=== PATIENT | female | born 1960 | race Caucasian/White ===

== ENCOUNTER 2016-10-14 18:20 | Observation (INO) ==
[2016-10-14] MEDS ORDERED: Acetaminophen 325 MG TABLET PO PRN (20:49)
[2016-10-14] MEDS ORDERED: *HR* Promethazine 25 MG/ML VIAL IVP PRN (20:49)
[2016-10-14] MEDS ORDERED: Aspirin 81 MG TAB.CHEW PO ONE (20:49)
[2016-10-14] MEDS ORDERED: Naloxone 0.4 MG/ML INJ IVP PRN (20:49)
[2016-10-14] MEDS ORDERED: Nicotine 21 MG PATCH.TD24 TD PRN (20:49)
[2016-10-14] MEDS ORDERED: *HR* Metoprolol 5 MG/5 ML VIAL IVP PRN (20:49)
[2016-10-14] MEDS ORDERED: Nitroglycerin 0.4 MG TAB.SUBL SL PRN (20:49)
[2016-10-14] MEDS ORDERED: Albuterol 2.5 MG/3 ML NEBULIZER IH PRN (20:49)
[2016-10-14] MEDS ORDERED: Pantoprazole 40 MG VIAL IVP STA (20:49)
--- NOTE | 2016-10-14 21:22 | Internal Med History&Physical ---
Date of Encounter: 10/14/16 Time of Encounter: 21:00 Assessment and Plan (1) Acute chest wall pain Current visit: Yes Status: Acute . (2) Chest pain, rule out acute myocardial infarction Current visit: Yes Status: Acute . (3) Chest pain with moderate risk of acute coronary syndrome Current visit: Yes Status: Acute . (4) Acute exacerbation of chronic obstructive airways disease Current visit: Yes Status: Acute . (5) Hyperlipidemia Current visit: Yes Status: Chronic . Qualifiers: Hyperlipidemia type: mixed hyperlipidemia Qualified Code(s): E78.2 - Mixed hyperlipidemia (6) Hypothyroidism Current visit: Yes Status: Chronic . Qualifiers: Hypothyroidism type: acquired Qualified Code(s): E03.9 - Hypothyroidism, unspecified (7) IBS (irritable bowel syndrome) Current visit: Yes Status: Chronic . Qualifiers: Irritable bowel syndrome type: unspecified Qualified Code(s): K58.9 - Irritable bowel syndrome without diarrhea (8) Morbid obesity with BMI of 40.0-44.9, adult Current visit: Yes Status: Chronic . (9) Chronic back pain greater than 3 months duration Current visit: Yes Status: Chronic . (10) Depression Current visit: Yes Status: Chronic . Qualifiers: Depression Type: dysthymia Qualified Code(s): F34.1 - Dysthymic disorder (11) Diabetes mellitus type 2, diet-controlled Current visit: Yes Status: Chronic . (12) GERD (gastroesophageal reflux disease) Current visit: Yes Status: Chronic . Qualifiers: Esophagitis presence: esophagitis presence not specified Qualified Code(s) : K21.9 - Gastro-esophageal reflux disease without esophagitis (13) Hypertension Current visit: Yes Status: Chronic . Qualifiers: Hypertension type: essential hypertension Qualified Code(s): I10 - Essential (primary) hypertension (14) Lumbar back pain Current visit: Yes Status: Chronic . Qualifiers: Chronicity: chronic Back pain laterality: midline Sciatica presence: unspecified whether sciatica present Qualified Code(s): M54.5 - Low back pain ; G89.29 - Other chronic pain (15) Sarcoidosis of lung Current visit: Yes Status: Chronic . Internal Medicine - H&P: HPI Chief complaint: Difficulty breathing Admitted From: Hospital to Hospital Transfer (Hospital transferred from [facility] ED) Plans for Post Hospital Care: Home History of present illness: Ms. Burch is a 56 year old female with history significant for COPD-emphysema, sarcoidosis of the lung, chronic respiratory failure continuous oxygen dependent , RAD/asthma, type II DM, diabetic polyneuropathy, glaucoma, depression-anxiety , irritable bowel syndrome, hypertension, dyslipidemia, GERD, hypothyroidism, chronic LBP/MSK pain syndrome, lumbago/lumbar spondylosis, fibromyalgia, nonsmoker The patient was visited and interviewed and examined. Patient is admitted to [facility] as a hospital transfer from [facility] ED she presented with complaints of difficulty breathing. Patient's home health nurse sawher oxygen saturations to be low at 84-85% in spite of supplemental oxygen. She complained a presentation of mild shortness of breath and some intermittent chest discomfort. Experienced some nausea and vomiting the day prior to presentation to the ER. Denied abdominal pain headache neck pain and flank pain. Denied any increase in cough or sputum production. Denied fevers chills sweats. Patient have not seen by cardiology within the last several days for reports of intermittent chest pain and had recently underwent nuclear stress testing. This suggested an area of ischemia. She tentatively had an appointment to be seen by cardiology this coming Thursday for formal evaluation of this. Patient acknowledges that her current difficulty in breathing is intermittent it is improved with oxygen worsen with exertion. He presents with a positive family history for heart disease. She presents his multiple risk factors for heart disease. Nonsmoker but lives in a smoking household. Findings in the ED: Temperature 98.6 respirations 16 pulse 68 BP 112/59. O2 saturation 88% liters nasal cannula. WBC 7.4 hemoglobin 12.2 platelets 162, 000. RDW 17. Differential normal. PT 12 INR 1.1 PTT 37.1. Metabolic panel sodium 146 potassium 3.1 and creatinine 1.11 GFR 50. Glucose 114 osmolality 303. Hepatic function normal. Albumin 3.2 total 6.7. Troponin 0.01. BNP 55. D-dimer 646. Arterial blood gas pH 7.41 PCO2 51 PO2 57 bicarbonate 31.8. Saturation 89% on 4 L per nasal cannula. Chest x-ray showed no acute active cardiopulmonary process. EKG normal sinus rhythm. No acute ischemic changes. (09/03/16 Lexiscan nuclear stress test gated LVEF> 70%. Small size, mild intensity, reversible perfusion defect in the apical anterior wall. Findings consistent with a mild reversible ischemia. All other segmental perfusion normal in rest and exercise. No stable DVT changes with Lexiscan and low exercise level...07/23/16 echocardiogram demonstrated normal LV chamber size wall thickness and systolic function. LVEF 65%. Normal left and right ventricular structure and function. No significant valvular dysfunction. No evidence of pulmonary hypertension.) Preliminary impressions suggested acute on chronic hypoxic-hypercapnic respiratory failure due to acute exacerbation of underlying COPD. This is a patient presents with known chronic respiratory failure continues O2 dependent complicated by mixed pattern process of sarcoidosis of the lung, reactive airway disease and emphysematous changes. SHe does not meet sepsis or SIRS criteria and at the time of presentation. SHe presents also with recent history of nuclear medicine stress test suggestive of ischemic heart disease. She does not present with typical features of acute chest pain syndrome. However rule out protocols will proceed for ACS/UA. The patient presents for acute clinical decline immobility given her presenting complaint, findings and comorbidities. Workup and treatments will proceed comprehensively. Cumulative laboratory and radiographic data base was reviewed, considered and discussed. Pertinent ancillary medical records including ECW and PCI documentation was reviewed and considered. Given the patient's presenting concerns, past medical history, clinical findings and symptoms, she is admitted at this time will undergo further evaluation and disposition. Orders were written as per the computerized physician order picker/assembler system.......................................................................... .................... Consultative opinions will be sought as clinical circumstances justify. Initial consultative opinion requested of cardiology. Pain management needs will be addressed. Laboratory and radiographic data base will be updated as appropriate. Studies include: Cultures blood urine sputum, Ddimer, PT,INR,APTT, CPK, cardiac injury panel, BNP, UA, UDS, metabolic and hematologic panel, magnesium, phosphorus, ion calcium, thyroid panel, lipid profile, A1c, C-pep, CRP, sed rate, respiratory infection profile, respiratory virus panel, blood gas, lactic acid, serologies, etc. Precautions: Aspiration, fall, delirium protocol/surveillance initiated. Telemetry with continuous hemodynamic monitoring and pulse oximetry initiated. Empiric antibiotic coverage: pending diagnostic/culture data. Special studies: CT chest, chest x-ray, telemetry, EKG, echocardiogram. Pulmonary toilet: Incentive spirometry, aerosol bronchodilator, mucolytic, antitussive, supplemental oxygen. Corticosteroid therapy. CPAP/BiPAP supplemental oxygen delivery. Aerosol Mucomyst therapy. Fluid and electrolyte repletion efforts will proceed. Careful attention to fluid balance and renal recovery will be emphasized. Avoidance of nephrotoxic exposure and adverse drug drug interaction in the setting of impaired renal function will be monitored closely. Acute coronary syndrome protocol/surveillance initiated. Including: Beta tenisha, statin, ARB, aspirin nitrates.. MorphinePRN. Supplemental oxygenPRN. SQ Lovenox. DVT and PUD prophylaxis initiated: PPI therapy, intermittent pneumatic cuffs/ TEDs. Subq heparin/Lovenox. Early ambulation will be encouraged. Immunization updates recommended. Influenza and pneumococcal vaccinations as part of ongoing preventative healthcare recommendations strongly recommended. Smoking cessation counseling briefly addressed. Patient is a nonsmoker. ( Passive smoke exposure in the home.) Advanced care directive discussion briefly addressed. Patient does not declare any healthcare restrictions at this time. Cardiovascular risk appraisal and cardiovascular risk reduction efforts will be emphasized. Physical /occupational therapy may be considered to evaluate/assess patient's functional capacity and progress mobility if her circumstances permit. Sliding scale insulin coverage, ADA dietary restraint and schedule an as-needed basis fingerstick glucose assessments were initiated. Nutrition/diabetes education counseling may be considered as circumstances justify. Outpatient medication schedules will be reviewed, confirmed and facilitated as appropriate. Reconciliation of home treatments including adjustments, substitutions and reintroduction into the treatment regimen will address necessary maintenance therapies for chronic pre-existing medical conditions. Plan of care has been reviewed and discussed in detail with the patient. Questions addressed. Hospital course dictated by clinical findings, treatment response and potential consultative interventions. Patient is at risk for further acute clinical decline and morbidity due to her presenting chief complaints, findings and comorbid conditions. Condition is serious. Prognosis is guarded. CODE STATUS is full. Past Med Surg Social Fam HX - Past Medical History Source: old records reviewed Medical history: arthritis, asthma, COPD, diabetes, fibromyalgia, GERD, glaucoma , hyperlipidemia, hypertension, renal disease, thyroid disease, other ( Irritable bowel syndrome) Psychiatric history: anxiety, depression, other - Past Surgical History Surgical History: cholecystectomy, hysterectomy, knee replacement, orthopedic, other, other (Colonoscopy. Polypectomy. Eyelid surgery. EGD. Dental extractions.) - Social History Smoking Status: Never smoker ( smoker) Smokeless Tobacco Status: No Alcohol use: none Drug use: none Occupational status: unemployed Current living situation: With Family Activity Level: Independent ambulation, Mostly sedentary Recent Out of Country Travel Within the Last 8 Weeks: No Exposure or Possible Exposure to Illness During Travel: No - Family History Brother Hx Family Endocrine Disorder: Yes (dm2) Hx Family Neuromuscular Disorders: Yes (cva) Paternal Grandmother Living Status: Hx Family Cancer: Yes (eye) Maternal Grandfather Living Status: Hx Family Neuromuscular Disorders: Yes (cva) Mother Living Status: Still Living Hx Family Cardiac Disorders: Yes ("Heart problems", carotid artery disease) Hx Family Respiratory Disorders: Yes Father Living Status: Hx Family Cardiac Disorders: Yes (Some type of heart condition or CAD, CVA) Internal Medicine - H&P: Meds Aspirin 325 mg PO DAILY 05/24/15 [History] Buspirone [Buspar] 5 mg PO TID 05/24/15 [History] Dicyclomine [Bentyl] 10 mg PO QID 05/24/15 [History] Cholestyramine/Aspartame [Cholestyramine Light Packet] 4 gm PO DAILY 12/26/15 [ History] Acetaminophen [8 Hour] 650 mg PO Q6HR PRN 07/07/16 [History] Esomeprazole Magnesium [Nexium] 40 mg PO DAILY 07/07/16 [History] Metoprolol XL (24 HR) Succ [Toprol Xl] 25 mg PO DAILY 07/07/16 [History] HYDROcodone/Acet 10/325 mg [Dickinson 10-325 mg] 1 tab PO BID PRN 09/09/16 [History] Potassium Chloride [Klor-Con 10] 10 meq PO DAILY 09/09/16 [History] Albuterol Neb [Proventil Neb] 2.5 mg IH Q2H PRN #0 inhsol 09/14/16 [Rx] Docusate [Colace] 100 mg PO BID PRN 09/14/16 [History] Furosemide [Lasix] 80 mg PO DAILY tablet 09/14/16 [Rx] Ipratropium/Albuterol Neb [Duoneb] 3 ml IH Q6HR PRN 09/14/16 [History] Lidocaine Patch [Lidoderm 5% patch] 1 each TP DAILY adh..patch 09/14/16 [Rx] Ondansetron ODT [Zofran ODT] 4 mg SL Q4HR PRN #0 tab.rapdis 09/14/16 [Rx] Pregabalin [Lyrica] 150 mg PO BID capsule 09/14/16 [Rx] Isosorbide MONOnitrate (24 HR) [Imdur] 30 mg PO DAILY 10/14/16 [History] Losartan Potassium [Cozaar] 50 mg PO DAILY 10/14/16 [History] Sertraline [Zoloft] 200 mg PO DAILY 10/14/16 [History] Simvastatin [Zocor] 10 mg PO HS 10/14/16 [History] Tizanidine HCl 4 mg PO TID PRN 10/14/16 [History] Allergies Iodinated Contrast Media - Oral and [Iodinated Contrast Media - IV Dye] Allergy (Verified 09/09/16 07:27) Hives Sulfa (Sulfonamide Antibiotics) Allergy (Verified 09/09/16 07:27) Hives tetanus and diphtheria toxoids [Tetanus&Diphtheria Toxoid] Allergy (Verified 07:27) Hives All Systems PM: A 10-system review of systems was performed and is negative for pertinent findings except as documented above in the HPI. - Constitutional Constitutional: as per HPI, no chills, no fever(s), no night sweats - EENT Eyes: as per HPI, no change in vision, no discharge, no pain, no photophobia Ears: as per HPI, no ear discharge, no ear pain, no tinnitus Nose, mouth and throat: as per HPI, no dysphagia, no nasal discharge, no neck pain, no sore throat - Cardiovascular Cardiovascular ROS IM: as per HPI, chest pain, no diaphoresis, no dyspnea, no lightheadedness, no palpitations, no syncope - Respiratory Respiratory: as per HPI, cough, dyspnea, dyspnea on exertion, chest congestion, no hemoptysis, no wheezing, no excessive phlegm production - Gastrointestinal Gastrointestinal: as per HPI, no abdominal pain, no diarrhea, no hematemesis, no hematochezia, no melena, no nausea, no vomiting - Genitourinary Genitourinary: as per HPI, no change in urinary stream, no dysuria, no flank pain, no hematuria - Musculoskeletal Musculoskeletal ROS IM: as per HPI, no numbness, no tingling - Integumentary Integumentary IM: as per HPI, no rash, no unusual bruising - Neurological Neurological ROS: as per HPI, no confusion, no convulsions, no focal weakness, no numbness, no tingling, no tremor(s) - Psychiatric Psychiatric: as per HPI - Endocrine Endocrine IM: as per HPI - Hematologic/Lymphatic Hematologic/Lymphatic: as per HPI, no easy bruising - Allergic/Immunologic Allergic/Immunologic: as per HPI - Constitutional General appearance: Present: cooperative, A&O X 3, morbidly obese, no acute distress, answers questions appropriately - Head Head exam: Present: atraumatic, normocephalic - Eye Eye exam: Present: EOMI, PERRL, conjuntiva pink, sclera anicteric Pupils: Present: normal accommodation, PERRL - ENT ENT exam: Present: mucous membranes moist, normal external ear exam, normal oropharynx - Neck Neck exam general surgery: Present: full ROM, supple, trachea midline. Absent: lymphadenopathy - Respiratory Respiratory exam: Present: chest wall tenderness, decreased breath sounds, CTAB , wheezes. Absent: accessory muscle use, rales, rhonchi - Cardiovascular Cardiovascular exam: Present: distant heart sounds, RRR, +S1, +S2. Absent: diastolic murmur, gallop, rubs, systolic murmur - GI/Abdominal GI/Abdominal exam: Present: normal bowel sounds, soft, no peritoneal signs. Absent: distended, tenderness - Extremities Exam Extremities exam: Present: full ROM, warm, radial pulses palpable and symetrical. Absent: calf tenderness, cyanotic, pedal edema - Neurological Exam Neurological exam: Present: alert, CN II-XII intact, oriented X3, no focal deficits. Absent: pronater drift, facial droop, speech deficit - Psychiatric Psychiatric exam: Present: normal affect, normal mood - Skin Skin exam: Present: dry, intact, warm Internal Med - H&P Results - Labs CBC & Chem 7: 10/15/16 03:48 10/15/16 03:48 - Impressions Vital Signs Temp Pulse Resp BP Pulse Ox 10/15/16 04:40 18 91 L 10/15/16 00:33 98.0 F 56 17 126/82 98 10/14/16 23:20 92 L 10/14/16 21:53 18 93 L 10/14/16 21:35 93 L 10/14/16 21:29 98.3 F 63 18 117/68 93 L Intake and Output 10/14/16 10/14/16 10/15/16 15:59 23:59 07:59 Intake Total 200 / 200 100 / 100 Balance 200 / 200 100 / 100 Intake: IV Fluids 200 / 200 100 / 100 Potassium Chloride 10 mEq 200 / 200 100 / 100 /100mL 10 meq In 100 ml @ 100 mls/hr IVPB Q60MIN [facility] Rx#:[id number] Other: Weight 98.883 kg Patient Weight 10/15/16 23:59 Weight 98.883 kg Short CBC 10/15/16 Range/Units 03:48 WBC 6.3 (4.3-11.1) K/mcL Hgb 11.7 (11.5-15.4) g/dL Hct 38.2 (35.3-44.9) % Plt Count 146 (140-400) K/mcL BMP 10/15/16 Range/Units 03:48 Sodium 145 (136-145) mEq/L Potassium 3.7 (3.5-4.5) mEq/L Chloride 107 (98-109) mEq/L Carbon Dioxide 29 (19-29) mEq/L BUN 12 (7-20) mg/dL Creatinine 0.87 (0.57-1.11) mg/dL Glucose 112 H (70-99) mg/dL Calcium 8.2 L (8.6-10.8) mg/dL Cardiac Enzymes 10/15/16 10/14/16 Range/Units 03:48 21:41 Troponin I 0.01 0.00 (0-0.03) ng/mL Liver Function 10/15/16 Range/Units 03:48 Total Bilirubin 0.3 (0.2-1.2) mg/dL AST 13 (5-34) Units/L ALT 12 (0-55) Units/L Alkaline Phosphatase 66 (38-126) Units/L Albumin 3.0 L (3.5-5.0) g/dL Abnormal lab results MCH 25.4 pg (28.0-33.3) L 10/15/16 03:48 MCHC 30.6 g/dL (31.6-35.5) L 10/15/16 03:48 RDW 17.1 % (11.5-14.5) H 10/15/16 03:48 Glucose 112 mg/dL (70-99) H 10/15/16 03:48 Hemoglobin A1c 6.0 % (-5.6) H 10/15/16 03:48 Calculated Osmolality 301 (280-300) H 10/15/16 03:48 Calcium 8.2 mg/dL (8.6-10.8) L 10/15/16 03:48 Albumin 3.0 g/dL (3.5-5.0) L 10/15/16 03:48 Albumin/Globulin Ratio 0.9 (1.1-2.2) L 10/15/16 03:48 Triglycerides 215 mg/dL (< 150) H 10/15/16 03:48 VLDL Cholesterol, Calc 43 mg/dL (< 31) H 10/15/16 03:48 HDL Cholesterol 32 mg/dL (40-59) L 10/15/16 03:48 Cholesterol/HDL Ratio 5.3 (0-4.9) H 10/15/16 03:48 Allergies Allergy/AdvReac Type Severity Reaction Status Date / Time Iodinated Contrast Media - Allergy Hives Verified 09/09/16 07:27 Oral and [Iodinated Contrast Media - IV Dye] Sulfa (Sulfonamide Allergy Hives Verified 09/09/16 07:27 Antibiotics) tetanus and diphtheria Allergy Hives Verified 09/09/16 07:27 toxoids [Tetanus&Diphtheria Toxoid] Laboratory Results WBC 6.3 K/mcL (4.3-11.1) 10/15/16 03:48 RBC 4.60 M/mcL (3.82-4.97) 10/15/16 03:48 Hgb 11.7 g/dL (11.5-15.4) 10/15/16 03:48 Hct 38.2 % (35.3-44.9) 10/15/16 03:48 MCV 83.0 fL (83.0-100.0) 10/15/16 03:48 MCH 25.4 pg (28.0-33.3) L 10/15/16 03:48 MCHC 30.6 g/dL (31.6-35.5) L 10/15/16 03:48 RDW 17.1 % (11.5-14.5) H 10/15/16 03:48 Plt Count 146 K/mcL (140-400) 10/15/16 03:48 MPV 10.3 fL (9.4-12.4) 10/15/16 03:48 Sodium 145 mEq/L (136-145) 10/15/16 03:48 Potassium 3.7 mEq/L (3.5-4.5) 10/15/16 03:48 Chloride 107 mEq/L (98-109) 10/15/16 03:48 Carbon Dioxide 29 mEq/L (19-29) 10/15/16 03:48 BUN 12 mg/dL (7-20) 10/15/16 03:48 Creatinine 0.87 mg/dL (0.57-1.11) 10/15/16 03:48 Est GFR ( Amer) > 60 (> 60) 10/15/16 03:48 Est GFR (Non-Af Amer) > 60 (> 60) 10/15/16 03:48 BUN/Creatinine Ratio 14 (6-26) 10/15/16 03:48 Glucose 112 mg/dL (70-99) H 10/15/16 03:48 Est Mean Plasma Glucose 126 mg/dl 10/15/16 03:48 Hemoglobin A1c 6.0 % (-5.6) H 10/15/16 03:48 Calculated Osmolality 301 (280-300) H 10/15/16 03:48 Lactic Acid 0.7 mmol/L (0.5-2.2) 10/14/16 22:21 Calcium 8.2 mg/dL (8.6-10.8) L 10/15/16 03:48 Phosphorus 4.1 mg/dL (2.3-4.7) 10/14/16 21:41 Magnesium 1.7 mg/dL (1.6-2.6) 10/14/16 21:41 Total Bilirubin 0.3 mg/dL (0.2-1.2) 10/15/16 03:48 AST 13 Units/L (5-34) 10/15/16 03:48 ALT 12 Units/L (0-55) 10/15/16 03:48 Alkaline Phosphatase 66 Units/L (38-126) 10/15/16 03:48 Troponin I 0.01 ng/mL (0-0.03) 10/15/16 03:48 B-Natriuretic Peptide 37 pg/mL (0-100) 10/15/16 03:48 Serum Total Protein 6.2 g/dL (6.0-8.3) 10/15/16 03:48 Albumin 3.0 g/dL (3.5-5.0) L 10/15/16 03:48 Globulin 3.2 g/dL (2.4-3.5) 10/15/16 03:48 Albumin/Globulin Ratio 0.9 (1.1-2.2) L 10/15/16 03:48 Triglycerides 215 mg/dL (< 150) H 10/15/16 03:48 Cholesterol 169 mg/dL (< 200) 10/15/16 03:48 LDL Cholesterol, Calc 94 mg/dL (0-99) 10/15/16 03:48 VLDL Cholesterol, Calc 43 mg/dL (< 31) H 10/15/16 03:48 HDL Cholesterol 32 mg/dL (40-59) L 10/15/16 03:48 Cholesterol/HDL Ratio 5.3 (0-4.9) H 10/15/16 03:48 TSH 2.265 mcIU/mL (0.350-4.840) 10/15/16 03:48
[2016-10-14] MEDS: 0.9 % Sodium Chloride 1,000 ML IVC SCH (21:25)
[2016-10-14] MEDS: Ipratropium/Albuterol Neb 3 ML IH SCH (21:50)
[2016-10-14 22:01] LABS: Magnesium 1.7 mg/dL (1.6-2.6); Phosphorous 4.1 mg/dL (2.3-4.7)
[2016-10-15 04:02] LABS: Hematocrit 38.2 % (35.3-44.9); Hemoglobin 11.7 g/dL (11.5-15.4); Mean Corpuscular HGB Conc 30.6 g/dL (31.6-35.5); Mean Corpuscular Hemoglobin 25.4 pg (28.0-33.3); Mean Platelet Volume 10.3 fL (9.4-12.4); Platelet Count 146 K/mcL (140-400); Red Cell Distribution Width 17.1 % (11.5-14.5)
[2016-10-15 04:21] LABS: Alanine Aminotransferase 12 Units/L (0-55); Albumin/Globulin Ratio 0.9 (1.1-2.2); Alkaline Phosphatase 66 Units/L (38-126); Aspartate Amino Transferase 13 Units/L (5-34); BUN/Creatinine Ratio 14 (6-26); Bilirubin,Total 0.3 mg/dL (0.2-1.2); Blood Urea Nitrogen 12 mg/dL (7-20); Calcium 8.2 mg/dL (8.6-10.8); Carbon Dioxide 29 mEq/L (19-29); Chloride 107 mEq/L (98-109); Chol/HDL Ratio 5.3 (0-4.9); Cholesterol 169 mg/dL (< 200); Globulin 3.2 g/dL (2.4-3.5); Glucose 112 mg/dL (70-99); HDL Cholesterol 32 mg/dL (40-59); LDL Cholesterol,Calculated 94 mg/dL (0-99); Osmolality,Calculated 301 (280-300); Potassium 3.7 mEq/L (3.5-4.5); Sodium 145 mEq/L (136-145); Total Protein 6.2 g/dL (6.0-8.3); Triglycerides 215 mg/dL (< 150); eGFR For African Americans > 60 (> 60); eGFR For Non-African Americans > 60 (> 60)
[2016-10-15] MEDS: Ipratropium/Albuterol Neb 3 ML IH SCH ×4 (04:39→22:48)
[2016-10-15 04:44] LABS: Thyroid Stimulating Hormone 2.265 mcIU/mL (0.350-4.840)
[2016-10-15] MEDS: Famotidine 20 MG/2 ML VIAL IVP SCH ×2 (05:03→18:35)
[2016-10-15] MEDS ORDERED: tiZANidine 4 MG TABLET PO PRN (06:11)
[2016-10-15] MEDS: Cholestyramine 4 GM POWD.PACK PO SCH (07:38)
[2016-10-15] MEDS: Isosorbide MONOnitrate (24 HR) 30 MG TAB.ER.24H PO SCH (07:39)
[2016-10-15] MEDS: Pregabalin 75 MG CAPSULE PO SCH ×2 (07:39→19:58)
[2016-10-15] MEDS: Aspirin 81 MG TAB.CHEW PO SCH (07:39)
[2016-10-15] MEDS: predniSONE 20 MG TABLET PO SCH (07:39)
[2016-10-15] MEDS: Metoprolol XL (24 HR) Succ 25 MG TAB.ER.24H PO SCH (07:39)
[2016-10-15] MEDS: *HR* OxyCODONE Immed Rel 5 MG TABLET PO PRN ×3 (07:43→22:05)
--- NOTE | 2016-10-15 09:30 | Internal Med Progress Note ---
Date of Encounter: 10/15/16 Time of Encounter: 09:27 - Assessment and plan (1) Chest pain with moderate risk of acute coronary syndrome Current Visit: Yes Status: Acute Assessment and plan: trop negative, EKG does not have any specific ischemic changes had nuclear stress test on 09/02 that showed normal LVEF with a small size, reversible perfusion defect in the ant apical wall. diana met with DR. Diaz and has planned for possibel [facility]. cardio has been consulted today. will follow recommendtaions. will continue asa, statin, bb , giuseppe-i and imdur. (2) Morbid obesity with BMI of 40.0-44.9, adult Current Visit: Yes Status: Chronic (3) Sarcoidosis of lung Current Visit: Yes Status: Chronic Assessment and plan: stable. she is on chronic steroids will continue. - Time Spent With Patient 25 - 35 minutes - Subjective Interval history: diana seen at the bedside, reports midl chest pain on the right side taht is better now,. denies n/v/ diaphoresis or sob - Constitutional Vitals: Temp Pulse Resp BP Pulse Ox 97.8 F 72 16 136/82 93 L 10/15/16 06:45 10/15/16 06:45 10/15/16 06:45 10/15/16 06:45 10/15/16 06:45 General appearance: Present: cooperative, A&O X 3, morbidly obese, no acute distress, answers questions appropriately Exam: - Head Head exam: Present: atraumatic, normocephalic - Eye Eye exam: Present: EOMI, PERRL, conjuntiva pink, sclera anicteric Pupils: Present: normal accommodation, PERRL - ENT ENT exam: Present: mucous membranes moist, normal external ear exam, normal oropharynx - Neck Neck exam general surgery: Present: full ROM, supple, trachea midline. Absent: lymphadenopathy - Respiratory Respiratory exam: Present: CTAB Absent: accessory muscle use, rales, rhonchi - Cardiovascular Cardiovascular exam: Present: distant heart sounds, RRR, +S1, +S2. Absent: diastolic murmur, gallop, rubs, systolic murmur - GI/Abdominal GI/Abdominal exam: Present: normal bowel sounds, soft, no peritoneal signs. Absent: distended, tenderness - Extremities Exam Extremities exam: Present: full ROM, warm, radial pulses palpable and symetrical. Absent: calf tenderness, cyanotic, pedal edema - Neurological Exam Neurological exam: Present: alert, CN II-XII intact, oriented X3, no focal deficits. Absent: pronater drift, facial droop, speech deficit - Psychiatric Psychiatric exam: Present: normal affect, normal mood - Skin Skin exam: Present: dry, intact, warm Internal Medicine: Result - Labs CBC & Chem 7: 10/15/16 03:48 10/15/16 03:48 Labs: Short CBC 10/15/16 Range/Units 03:48 WBC 6.3 (4.3-11.1) K/mcL Hgb 11.7 (11.5-15.4) g/dL Hct 38.2 (35.3-44.9) % Plt Count 146 (140-400) K/mcL BMP 10/15/16 03:48 Sodium 145 Potassium 3.7 Chloride 107 Carbon Dioxide 29 BUN 12 Creatinine 0.87 Glucose 112 H Calcium 8.2 L Cardiac Enzymes 10/14/16 10/15/16 Range/Units 21:41 03:48 Troponin I 0.00 0.01 (0-0.03) ng/mL Liver Function 10/15/16 Range/Units 03:48 Total Bilirubin 0.3 (0.2-1.2) mg/dL AST 13 (5-34) Units/L ALT 12 (0-55) Units/L Alkaline Phosphatase 66 (38-126) Units/L Albumin 3.0 L (3.5-5.0) g/dL Consult Discharge Plan - Plan Referrals: Jelly Bowling CNP [Advanced Practice Nurse] - 11/12/16 11:00 am Jennifer Magallon MD [Partnered Physician] - 12/10/16 9:35 am Neo Chang CNP [Primary Care Provider] - 10/21/16 1:00 pm Manuel Ta MD [Partnered Physician] - 11/27/16 10:00 am Shayna Boyer DO [Partnered Physician] - 10/17/16 10:50 am
--- NOTE | 2016-10-15 10:04 | Electrocardiograph Report ---
[address] [place], [place] [address] Test Date: 2016-10-15 Pat Name: Manuel Burch Department: 114 Room: [facility] Gender: F Health Education Assistant: : 1960 Requested By: Ryan Hensley Order Number: [id number] Reading MD: Sole Suarez Measurements Intervals [place] Rate: 52 P: 58 NM: 186 QRS: 25 QRSD: 106 T: 50 QT: 428 QTc: 407 Interpretive Statements SINUS BRADYCARDIA Electronically Signed On 10-15-2016 10:02:43 EST by oSle Suarez
[2016-10-15] MEDS ORDERED: predniSONE 20 MG TABLET PO ONE (10:23)
--- NOTE | 2016-10-15 10:28 | Cardiology Consult Note ---
Date of Encounter: 10/15/16 Time of Encounter: 10:25 Assessment and Plan (1) Abnormal stress test Current Visit: Yes Status: Acute Stress test 08/2016 small size, mild intensity reversible perfusion defect in apical anterior wall consistent with mild ischemia. Echo 07/2016 EF 65%. Pt followed up with Dr. Boyer 09/19/16 for abnormal stress test. Medical management initial recommendation--Imdur added. Pt is on ASA, Statin, BB, ARB. Dr. Boyer noted if no improvement in symptoms, would proceed with LHC. Pt reports chest pain symptoms persist--typical and atypical features. She reports pain is left sided and radiates down left arm, worse with exertion, improved with rest and nitro, but recently pain is constant and she is tender on palpation. Risk factors include DM, HTN, HLD. Discussed continued medical management vs LHC--R/B/A to both discussed and pt prefers to proceed with LHC. LHC today. IVP dye allergy--hives. Will premedicate. (2) Chest pain Current Visit: Yes Status: Acute As above, in setting of recent abnormal stress test. Troponins negative x 3, no acute EKG changes. Given abnormal stress and persistent symptoms despite attempted medical management, proceed with LHC today. R/B/A discussed. Qualifiers: Chest pain type: unspecified Qualified Code(s): R07.9 - Chest pain, unspecified (3) Sarcoidosis Current Visit: Yes Status: Chronic Management per primary team. Follows with pulmonology. On daily steroids. Discussion w patient/family: The assessment and plan as outlined above was discussed with the patient and/or family members who expressed understanding and agreement. All questions were answered. Thank you for involving us in the care of your patient. Please call with any questions. I will discuss all the above with Dr. Abraham and make changes as necessary. History of Present Illness Consult date: 10/15/16 Requesting physician: Ryan Hensley Consult reason: Chest pain Chief complaint: Chest pain History of present illness: Ms. Burch is a 56 year old female with PMH of DM, HTN, HLD, COPD on home O2, sarcoidosis, recent mildly abnormal stress test that presented to ED with chief complaint of chest pain. She states it has been ongoing, worse with exertion, relieved with rest and nitro, but that in recent days it has been constant. It is left sided with radiation down her left arm associated with dyspnea. She reports her O2 sats dropped to 80s at home yesterday. She also reports a recent GI virus with nausea, vomiting and diarrhea, but no episodes since yesterday. Troponins have been negative x 3. CXR negative. No acute EKG changes. Stress test 08/2016 showed a small size, mild intensity, reversible perfusion defect in apical anterior wall consistent with mild ischemia. She was seen by Dr. Boyer 09/19/16 at which time meds were optimized. Pt reports there has been no improvement in symptoms. Past Med Surg Social Fam HX - Past Medical History Medical history: arthritis, asthma, COPD, diabetes, fibromyalgia, GERD, glaucoma , hyperlipidemia, hypertension, renal disease, thyroid disease, other ( Irritable bowel syndrome) Psychiatric history: anxiety, depression, other - Past Surgical History Surgical History: cholecystectomy, hysterectomy, knee replacement, orthopedic, other, other (Colonoscopy. Polypectomy. Eyelid surgery. EGD. Dental extractions.) - Social History Smoking Status: Never smoker ( smoker) Smokeless Tobacco Status: No Alcohol use: none Drug use: none - Family History Brother History Unknown: Yes Adopted: No Family Member Ethnicity: Non- Living Status: Still Living Hx Family Cardiac Disorders: Yes Hx Family Respiratory Disorders: Yes Hx Family Cancer: No Hx Family GI Disorders: No Hx Family Genitourinary Disorders: No Hx Family Endocrine Disorder: Yes (dm2) Hx Family Neuromuscular Disorders: Yes (cva) Paternal Grandmother Living Status: Hx Family Cancer: Yes (eye) Maternal Grandfather History Unknown: Yes Living Status: Hx Family Neuromuscular Disorders: Yes (cva) Mother Living Status: Still Living Hx Family Cardiac Disorders: Yes ("Heart problems", carotid artery disease) Hx Family Respiratory Disorders: Yes Father History Unknown: Yes Adopted: No Living Status: Hx Family Cardiac Disorders: Yes (Some type of heart condition or CAD, CVA) Medications and Allergies Aspirin 325 mg PO DAILY 05/24/15 [History] Buspirone [Buspar] 5 mg PO TID 05/24/15 [History] Dicyclomine [Bentyl] 10 mg PO QID 05/24/15 [History] Cholestyramine/Aspartame [Cholestyramine Light Packet] 4 gm PO DAILY 12/26/15 [ History] Acetaminophen [8 Hour] 650 mg PO Q6HR PRN 07/07/16 [History] Esomeprazole Magnesium [Nexium] 40 mg PO DAILY 07/07/16 [History] Metoprolol XL (24 HR) Succ [Toprol Xl] 25 mg PO DAILY 07/07/16 [History] HYDROcodone/Acet 10/325 mg [Morenci 10-325 mg] 1 tab PO BID PRN 09/09/16 [History] Potassium Chloride [Klor-Con 10] 10 meq PO DAILY 09/09/16 [History] Albuterol Neb [Proventil Neb] 2.5 mg IH Q2H PRN #0 inhsol 09/14/16 [Rx] Docusate [Colace] 100 mg PO BID PRN 09/14/16 [History] Furosemide [Lasix] 80 mg PO DAILY tablet 09/14/16 [Rx] Ipratropium/Albuterol Neb [Duoneb] 3 ml IH Q6HR PRN 09/14/16 [History] Lidocaine Patch [Lidoderm 5% patch] 1 each TP DAILY adh..patch 09/14/16 [Rx] Ondansetron ODT [Zofran ODT] 4 mg SL Q4HR PRN #0 tab.rapdis 09/14/16 [Rx] Pregabalin [Lyrica] 150 mg PO BID capsule 09/14/16 [Rx] Isosorbide MONOnitrate (24 HR) [Imdur] 30 mg PO DAILY 10/14/16 [History] Losartan Potassium [Cozaar] 50 mg PO DAILY 10/14/16 [History] Sertraline [Zoloft] 200 mg PO DAILY 10/14/16 [History] Simvastatin [Zocor] 10 mg PO HS 10/14/16 [History] Tizanidine HCl 4 mg PO TID PRN 10/14/16 [History] Allergies Iodinated Contrast Media - Oral and [Iodinated Contrast Media - IV Dye] Allergy (Verified 09/09/16 07:27) Hives Sulfa (Sulfonamide Antibiotics) Allergy (Verified 09/09/16 07:27) Hives tetanus and diphtheria toxoids [Tetanus&Diphtheria Toxoid] Allergy (Verified 07:27) Hives All Systems Review: A 10-system review of systems was performed and is negative for pertinent findings except as documented above in the HPI. - Cardiovascular Cardiovascular: as per HPI, chest pain at rest, chest pain with exertion, dyspnea at rest, dyspnea on exertion, radiating jaw, neck or arm pain, leg edema - Respiratory Respiratory: dyspnea, wheezing - Gastrointestinal Gastrointestinal: diarrhea, nausea Physical Examination Vital Signs, Last 4 Hours Temp Pulse Resp BP Pulse Ox 10/15/16 06:45 97.8 F 72 16 136/82 93 L Vital Signs Temp Pulse Resp BP Pulse Ox 10/15/16 06:45 97.8 F 72 16 136/82 93 L 10/15/16 05:25 98.0 F 98 15 125/66 97 10/15/16 04:40 18 91 L 10/15/16 00:33 98.0 F 56 17 126/82 98 10/14/16 23:20 92 L 10/14/16 21:53 18 93 L 10/14/16 21:35 93 L 10/14/16 21:29 98.3 F 63 18 117/68 93 L Intake and Output 10/14/16 10/15/16 10/15/16 23:59 07:59 15:59 Intake Total 200 / 200 100 / 100 Output Total 150 / 150 Balance 200 / 200 -50 / -50 Intake: IV Fluids 200 / 200 100 / 100 Potassium Chloride 10 mEq 200 / 200 100 / 100 /100mL 10 meq In 100 ml @ 100 mls/hr IVPB Q60MIN [facility] Rx#:[id number] Output: Urine 150 / 150 Other: Weight 98.883 kg Blood Glucose* 145 Patient Weight 10/15/16 23:59 Weight 98.883 kg General: Conversant, No Apparent Distress HEENT: Atraumatic, Normocephaly, Mucus Membranes Moist Neck: No JVD, Normal carotid pulses Cardiac: Reg Rate and Rhythm, Normal S1 and S2, No Murmur Lungs: Other (mild expiratory wheezes) Neuro: Alert and responsive, No focal deficits noted Abdomen: Soft, Non-Tender Skin: Other (redness on right hand palm) Musculoskeletal: No Chest Wall Tenderness Extremities: No Clubbing, No Cyanosis, No Edema, Normal Pulses Results 10/15/16 03:48 10/15/16 03:48 Lab Results 10/14/16 10/14/16 10/15/16 21:41 21:41 03:48 WBC Hgb Hct Plt Count Sodium Potassium Chloride Carbon Dioxide BUN Creatinine Glucose Calcium Magnesium 1.7 Total Bilirubin AST ALT Alkaline Phosphatase Troponin I 0.00 0.01 B-Natriuretic Peptide TSH 10/15/16 10/15/16 10/15/16 03:48 03:48 03:48 WBC 6.3 Hgb 11.7 Hct 38.2 Plt Count 146 Sodium 145 Potassium 3.7 Chloride 107 Carbon Dioxide 29 BUN 12 Creatinine 0.87 Glucose 112 H Calcium 8.2 L Magnesium Total Bilirubin 0.3 AST 13 ALT 12 Alkaline Phosphatase 66 Troponin I B-Natriuretic Peptide 37 TSH 2.265 10/15/16 09:33 WBC Hgb Hct Plt Count Sodium Potassium Chloride Carbon Dioxide BUN Creatinine Glucose Calcium Magnesium Total Bilirubin AST ALT Alkaline Phosphatase Troponin I 0.01 B-Natriuretic Peptide TSH Short CBC 10/15/16 Range/Units 03:48 WBC 6.3 (4.3-11.1) K/mcL Hgb 11.7 (11.5-15.4) g/dL Hct 38.2 (35.3-44.9) % Plt Count 146 (140-400) K/mcL BMP 10/15/16 Range/Units 03:48 Sodium 145 (136-145) mEq/L Potassium 3.7 (3.5-4.5) mEq/L Chloride 107 (98-109) mEq/L Carbon Dioxide 29 (19-29) mEq/L BUN 12 (7-20) mg/dL Creatinine 0.87 (0.57-1.11) mg/dL Glucose 112 H (70-99) mg/dL Calcium 8.2 L (8.6-10.8) mg/dL Cardiac Enzymes 10/15/16 10/15/16 10/14/16 Range/Units 09:33 03:48 21:41 Troponin I 0.01 0.01 0.00 (0-0.03) ng/mL Liver Function 10/15/16 Range/Units 03:48 Total Bilirubin 0.3 (0.2-1.2) mg/dL AST 13 (5-34) Units/L ALT 12 (0-55) Units/L Alkaline Phosphatase 66 (38-126) Units/L Albumin 3.0 L (3.5-5.0) g/dL Active Medications Acetaminophen (Tylenol) 650 mg PO Q6HR PRN PRN Reason: Mild Pain (1-3) Stop: 04/15/17 20:50 Albuterol Sulfate (Proventil Neb) 2.5 mg IH Q2H PRN PRN Reason: Shortness Of Breath/Wheezing Stop: 04/15/17 20:50 Albuterol/Ipratropium (Duoneb) 3 ml IH QIDR ESAU Stop: 04/15/17 23:01 Last Admin: 10/15/16 04:39 Dose: 3 ml Aspirin (Aspirin) 81 mg PO DAILY [facility] Stop: 04/16/17 09:01 Last Admin: 10/15/16 07:39 Dose: 81 mg Atorvastatin Calcium (Lipitor) 40 mg PO HS [facility] Stop: 04/15/17 21:01 Last Admin: 10/14/16 22:59 Dose: 40 mg Buspirone HCl (Buspar) 5 mg PO TID [facility] Stop: 04/16/17 09:01 Last Admin: 10/15/16 07:39 Dose: 5 mg Cholestyramine Resin (Cholestyramine) 4 gm PO DAILY [facility] Stop: 04/16/17 09:01 Last Admin: 10/15/16 07:38 Dose: 4 gm Dicyclomine HCl (Bentyl) 10 mg PO QID [facility] Stop: 04/16/17 09:01 Last Admin: 10/15/16 07:39 Dose: 10 mg Docusate Sodium (Colace) 100 mg PO BID PRN PRN Reason: Constipation Stop: 04/15/17 20:50 Famotidine (Pepcid) 20 mg IVP Q12HR ESAU Stop: 04/16/17 06:01 Last Admin: 10/15/16 05:03 Dose: 20 mg Sodium Chloride (0.9 % Sodium Chloride) 1,000 mls @ 50 mls/hr IVC .Q20H ESAU Stop: 04/15/17 21:01 Last Admin: 10/14/16 21:25 Dose: 50 mls/hr Isosorbide Mononitrate (Imdur) 30 mg PO DAILY [facility] Stop: 04/16/17 09:01 Last Admin: 10/15/16 07:39 Dose: 30 mg Losartan Potassium (Cozaar) 100 mg PO DAILY [facility] Stop: 04/16/17 09:01 Last Admin: 10/15/16 07:40 Dose: 100 mg Losartan Potassium (Cozaar) 50 mg PO DAILY [facility] Stop: 04/16/17 09:01 Last Admin: 10/15/16 07:40 Dose: Not Given Metoprolol Succinate (Toprol Xl) 25 mg PO DAILY [facility] Stop: 04/16/17 09:01 Last Admin: 10/15/16 07:39 Dose: 25 mg Metoprolol Tartrate (Lopressor) 5 mg IVP Q6HR PRN PRN Reason: SEE COMMENTS Stop: 04/15/17 20:50 Morphine Sulfate (Morphine Sulfate) 2 mg IVP Q2H PRN PRN Reason: Severe Pain (7-10) Stop: 04/15/17 20:50 Naloxone HCl (Narcan) 0.4 mg IVP Q2MIN PRN PRN Reason: Opioid Reversal Stop: 04/15/17 20:50 Nicotine (Nicoderm) 21 mg TD DAILY PRN; Protocol PRN Reason: Nicotine Cravings Stop: 04/15/17 21:01 Nitroglycerin (Nitroglycerin) 0.4 mg SL Q5MIN PRN PRN Reason: Chest Pain Stop: 04/15/17 20:50 Omeprazole (Prilosec) 20 mg PO 0630 [facility] Stop: 04/16/17 06:31 Last Admin: 10/15/16 05:04 Dose: 20 mg Oxycodone HCl (Roxicodone) 5 mg PO Q6HR PRN PRN Reason: Moderate Pain (4-6) Stop: 04/15/17 20:50 Last Admin: 10/15/16 07:43 Dose: 5 mg Prednisone (Prednisone) 20 mg PO DAILY [facility] Stop: 04/16/17 09:01 Last Admin: 10/15/16 07:39 Dose: 20 mg Pregabalin (Lyrica) 150 mg PO BID [facility] Stop: 04/16/17 09:01 Last Admin: 10/15/16 07:39 Dose: 150 mg Promethazine HCl (Phenergan) 12.5 mg IVP Q6HR PRN PRN Reason: Nausea And Vomiting Stop: 04/15/17 20:50 Sertraline HCl (Zoloft) 200 mg PO DAILY [facility] Stop: 04/16/17 09:01 Last Admin: 10/15/16 07:39 Dose: 200 mg Tizanidine HCl (Zanaflex) 4 mg PO TID PRN PRN Reason: Muscle Spasm Stop: 04/16/17 06:12 - Imaging and Cardiology Chest Xray: report reviewed Stress Test: report reviewed (08/2016 small size, mild intensity, reversible perfusion defect in apical anterior wall consistent with mild ischemia.) Echo: report reviewed (07/2016 EF 65%, normal diastolic function, normal RV structure and function.) - EKG Interpretation EKG results cardiology: personally reviewed (Sinus nini, rate 52) Consult Discharge Plan - Plan Referrals: Jelly Bowling CNP [Advanced Practice Nurse] - 11/12/16 11:00 am Jennifer Magallon MD [Partnered Physician] - 12/10/16 9:35 am Neo Chang CNP [Primary Care Provider] - 10/21/16 1:00 pm Manuel Ta MD [Partnered Physician] - 11/27/16 10:00 am Shayna Boyer DO [Partnered Physician] - 10/17/16 10:50 am
--- NOTE | 2016-10-15 12:27 | Pre-Sedation Evaluation ---
Pre-sedation evaluation - Pre-sedation checklist Date of procedure: 10/15/16 Procedure: Left Heart Cath Recent Vitals: Last Vital Signs Temp 98.1 F 10/15/16 11:05 Pulse 64 10/15/16 11:05 Resp 18 10/15/16 11:05 BP 111/69 10/15/16 11:05 Pulse Ox 92 L 10/15/16 11:05 H&P (including ROS) documented in medical record: Yes Previous reaction to sedatives/anesthetics: No Dietary Status: No solid food in preceding 4 hrs and no liquid in preceding 2 hrs Airway Assessment: Patient can open mouth completely, TMJ function normal, Micrognathia (under-bite, receding chin) absent, Neck with adequate range of motion Dentition: No loose teeth or bridges Possible difficult airway: No ASA Classification *see protocol: CLASS II-Mild systemic disease Plan of Care: Pt appropriate candidate for procedure/moderate/conscious sedation , Risks/benefits of procedure/sedation discussed w/ patient/family
[2016-10-15] MEDS ORDERED: 0.9 % Sodium Chloride 1,000 ML ONE ×2 (12:41→13:15)
[2016-10-15] MEDS ORDERED: Heparin 1,000 UNITS/500 mL NS 500 ML ONE (12:41)
[2016-10-15] MEDS ORDERED: *HR* Heparin 10,000 UNIT/10 ML VIAL ONE (12:41)
[2016-10-15] MEDS ORDERED: *HR* Midazolam HCl 2 MG/2 ML VIAL ONE (13:14)
[2016-10-15] MEDS ORDERED: *HR* FentaNYL (PF) 100 MCG/2 ML VIAL ONE (13:15)
[2016-10-15] MEDS ORDERED: methylPREDNISolone 125 MG/2 ML VIAL ONE ×2 (13:16→13:23)
--- NOTE | 2016-10-15 13:18 | ECHO - Doppler Report ---
Echocardiogram Name: Manuel Burch Date of Study: 10/15/2016 Date: 1960 Ht: 62.0 in Medical Record#: [id number] Age: 56 Wt: 218.0 lb Gender: Female BSA: 1.98 Order #: [id number] Location: [facility] Room #: [id number] Reading Physician: Sole Suarez MD, [facility] Senior Telecommunications Technician: Robert Grigsby RN Ordering Physician: Ryan Hensley MD Primary Physician: Amy Chang CNP Indications: Chest pain Impressions: LVEF 60-65%. Normal left ventricular size and systolic function. Normal right ventricular size and function. No significant valvular dysfunction. Unable to assess RVSP due to inadequate TR jet. Left Ventricular Wall Motion: Rest Echo Findings All wall segments showed normal motion. Findings: Study Quality * Technically sub-optimal due to poor echocardiographic windows. ECG Findings * Normal sinus rhythm. Left Ventricle * LVEF 60-65%. * Normal LV chamber size, wall thickness and function. * Normal left ventricular diastolic function. Right Ventricle * Normal right ventricular structure and function. Left Atrium * Normal left atrial size. Right Atrium * Normal right atrial size. Interatrial Septum * Interatrial septum not well evaluated. Aortic Valve * Aortic valve not well visualized. * No aortic regurgitation. * No aortic stenosis. Mitral Valve * Normal mitral valve structure and function. * No mitral stenosis. * Trace mitral regurgitation. Tricuspid Valve * Normal tricuspid valve structure and function. * Unable to estimate RVSP due to lack of TR jet. Pulmonic Valve * Pulmonic valve not well visualized. Aorta * Normally sized aortic root. Pericardium * The pericardium appears normal. IVC * Normal IVC dimensions and inspiratory collapse. History Hypertension Diabetes Family History of CAD 07/23/2016 a Previous Echo was performed. Measurements: BP: 111/ 69 2D Normal Values RVIDd: 2.10 cm <2.7 cm IVSd: 1.10 cm 0.6 - 1.0 cm LVIDd: 5.40 cm 3.7 - 5.6 cm LVPWd: 1.10 cm 0.6 - 1.1 cm LVIDs: 3.10 cm 1.5 - 3.6 cm LA: 3.30 cm 2.0 - 4.0cm %FS: 42.60 cm >25 % LVOT Diam: 2.00 cm LA volume: 56 Mitral Valve Peak E:.89 m/sec Peak A:.87 m/sec E/A Ratio:1 Peak E' Lat Alexis:12.4 cm/s Peak E' Med Alexis:7.21 cm/s E/E' Lat Ratio:7.2 E/E' Med Ratio:12.3 Tricuspid Valve TV Regurg Peak Grad: 12.00mmHg TV Regurg Peak Alexis: 1.74m/sec Updated by Sole Suarez MD, [facility] on 10/15/2016 1:12:12 PM electronically signed on 10/15/2016 1:12:34 PM with status of Final Wall Motion Swanson: 1=Normal, 2=Hypokinesis, 3=Akinesis, 4=Dyskinesis, 5=Aneurysmal, 6=Hyperkinetic, X=Not Visualized (Blank)=Missing
[2016-10-15] MEDS ORDERED: Nitroglycerin 1,000 MCG/10 ML VIAL IV ONE (13:30)
--- NOTE | 2016-10-15 13:56 | Event Note ---
Date of Encounter: 10/15/16 Time of Encounter: 13:55 - Cardiology Event Note LHC shows minimal CAD. No intervention. Recommend work-up for noncardiac causes of chest pain. Cardiology is signing off. Reconsult PRN. Follow-up as outpt in 3 -4 weeks.
--- NOTE | 2016-10-15 13:59 | Invasive Diagnostic Lab Proc ---
Name: Manuel Burch Date of Study: 10/15/2016 Date: 1960 Ht: 61.0in Medical Record#: [id number] Age: 56 Wt: 216.49lb Gender: Female BSA: 1.95 Order #: [id number] BMI: 40.93 Physicians Procedure Physician: Sole Suarez MD, [facility] Referring MD: Referring MD: Staff Name Position Time In Sites, Anita RT (R) Monitor 01:27 PM Yovana Ram RT Scrub 01:27 PM Hieu Woodard RN Rn Support Services 01:27 PM Indications Indication Abnormal Test - Stress Procedures Performed Procedure L HRT ARTERY/VENTRICLE ANGIO Pre-Procedure Checklist Informed consent is complete signed and on chart. H\\T\\P is on chart. ID band is on and ID verified with patient. Patient NPO for procedure The procedure was described for the patient and questions were answered. Blood Pressure: 111/69 ECG is on chart. Rhythm: NSR Plan of Care Patient will tolerate the procedure without complications. Adequate level of comfort will be maintained. Hemodynamics will remain stable Patient will recover from procedure without complications. Respiratory function will be maintained. Cardiac rhythm will remain stable. Patient temperature will be maintained. Patient and/or family have verbalized understanding of the procedure. Patient Education Chief Complaint/Reason for Test: Cardiac Cath Developmental Category: Adult (18-64 years) Developmentally Appropriate for Age: Yes Learning Barriers: None Education Needs: Procedure Education Method: Verbal Information Taught: Cardiac Cath Educational Evaluation: Able to repeat information Intravenous Access Time IV Size Location DC'd Fluid/Drip Rate Units RN 12:37 PM 20g 1 08/20" Patent On Arrival Lt Arm 0.9NaCl 25 ml/hr Hieu Woodard RN Allergies SULFA, IVP DYE, TETNUS Vital Signs Time BP (mmHg) HR (bpm) O2 Sat. RR (bpm) LOC 12:37 PM 111 / 69 64 92 % 18 5 = Fully awake and oriented or at pre-proc level 01:30 PM 155 / 85 77 95 % 20 01:34 PM 151 / 80 73 94 % 18 01:39 PM 154 / 92 73 95 % 26 01:44 PM 145 / 76 73 94 % 27 01:49 PM 145 / 74 71 94 % 23 Procedural Medications Time Medication Dose Units Method Given By 01:29 PM Oxygen 3 L/min nasal cannula Hieu Woodard RN :29 PM Versed 2 mg Intravenous Hieu Woodard RN 01:30 PM Solu-medrol 125 mg Intravenous ClaudiaornHieu luong RN :30 PM Benadryl 50 mg Intravenous Claudiaorncherise, Hieu DIALLO 01:32 PM Lidocaine 2% 18 ml Subcutaneous Sole Suarez MD, [facility] ASA Classification: CLASS II- Mild systemic disease (i.e. well-controlled diabetes, hypertension, asthma, cigarette smoking) Lucio Score Preprocedure Postprocedure Activity 2- Moves 4 extremities sustained head lift Activity Circulation 2- SBP +/= 20 points of pre-anesthetic level Circulation Consciousness 2- Awake and alert oriented x 3 Consciousness O2 Saturation 2- Able to maintain O2 satruation of 92% on room air O2 Saturation Respiratory 2- Able to deep breathe and cough well Respiratory Total Score 10 Total Score Contrast Agent: Isovue Diagnostic Contrast: 69 ml Total Contrast: 69 ml Fluoro Dose: 259 mGy Procedure Log Time Note Enter By 01:20 PM Pt arrived to [employer] lab[employer] 2 at 13:20 tsites :21 PM Patient charges- Angio tray pack, Navilyst 3mm J, Pulse Oximetry and ACIST tubing and transducer tsites : PM Physician arrived 13:21 tsites :21 PM Meet and greet completed tsites : PM Sign in performed according to hospital policy. tsites :21 PM Procedure start 13:21 tsites 01:27 PM Anita Zeng RT (R) Position: Monitor Time in: 13:27 tsites : PM Yovana Ram RT Position: Scrub Time in: 13: tsites :27 PM Hieu Woodard RN Position: Rn Support Services Time in: 13:27 tsites :28 PM Vitals capture started with the following parameters, Patient=Adult, Interval=5 min, Initial Pomwokxj=133 mmHg, Deflation Rate=5 mmHg, Cuff placed on Left Arm : PM CathStat :29 PM IV Supplies used: J loop Angio Cath. tsites :29 PM Case Delayed No tsites :29 PM Hair removed from procedure site in holding area using clippers. Bilateral groin prepped with Chloraprep by Anita Zeng RT (R), safety strap applied then patient was draped. Skin intact. tsites 01:29 PM ASA Class CLASS II- Mild systemic disease (i.e. well-controlled diabetes, hypertension, asthma, cigarette smoking) tsites 01:29 PM Time: 13:29 Oxygen on at 3 L/min per nasal cannula by Hieu Woodard RN tsites :30 PM Time: 13:29 Versed 2 mg Intravenous Given by Hieu Woodard RN tsites 01:30 PM HR=77 bpm, XGAS=337/85 mmhg, SpO2=95.0 %, Resp=20 B/min, Comment=nsr 01:30 PM Time: 13:30 Solu-medrol 125 mg Intravenous Given by Hieu Woodard RN tsites 01:31 PM Time: 13:30 Benadryl 50 mg Intravenous Given by Hieu Woodard RN tsites :32 PM Time out performed according to hospital policy tsites :32 PM Time: 13:32 18 ml Lidocaine 2% to right groin Subcutaneous Given by Sole Suarez MD, [facility] tsites 01:33 PM Access obtained by percutaneous puncture. 5Fr 10cm Terumo Bryant sheath placed in right Femoral artery. [id number] tsites 01:33 PM 5Fr FL 4 catheter inserted over the wire [facility] tsites 01:34 PM HR=73 bpm, DDBF=965/80 mmhg, SpO2=94.0 %, Resp=18 B/min, Comment=nsr 01:34 PM LCA angiography performed in multiple views. tsites 01:34 PM Recorded Pressure: Ao, HR=74, Condition=Condition 1 (Aorta) Ao 120/83/100 01:35 PM Catheter removed tsites 01:35 PM 5Fr FR 4 catheter inserted over the wire [facility] tsites 01:37 PM RCA angiography performed in multiple views. tsites 01:37 PM Recorded Pressure: Ao, HR=77, Condition=Condition 1 (Aorta) Ao 125/92/109 01:37 PM Catheter removed tsites 01:38 PM 5Fr Pigtail catheter inserted over the wire [facility] tsites 01:38 PM Catheter selectively placed in left ventricle tsites 01:38 PM Bolus angiogram of left Ventricle complete: 8 ml/sec for a total of 24 mls tsites :39 PM Pressure channel 1 zero failed. 01:39 PM HR=73 bpm, XXFE=934/92 mmhg, SpO2=95 %, Resp=26 B/min 01:39 PM Pressure channel 1 zeroed. 01:39 PM Recorded Pressure: LV, HR=76, Condition=Condition 1 (Left Ventricle) LV 113/22/23 01:40 PM Recorded Pressure: LV, Ao, HR=74, Condition=Condition 1 (Left Ventricle) LV 124/41/51, (Aorta) Ao 123/87/105 01:40 PM Catheter removed tsites 01:40 PM Wire removed tsites 01:40 PM Coronary Dominance: right tsites 01:41 PM Procedure completed at 13:40 tsites 01:42 PM Sign out completed: Radiation Dose 259 mGy Fluoro Time: 1.4 Isovue 370 - 200ml contrast 69.3 ml given by Sole Suarez MD, [facility]. Complications: NoneCardiac Rehab Consult needed: NoConfirmed administered medications: Yes tsites 01:42 PM Isovue 370 - 200ml,1 Bottle(s) used. tsites 01:42 PM Arterial sheath pulled, Mynx closure device used and was Successful S/N. tsites 01:42 PM Post ECG NSR tsites 01:42 PM Post Blood Pressure 154/92 tsites 01:43 PM 13:42 Post Pulses Bilateral DP \\T\\ PT 2+ tsites 01:43 PM Information taught Cardiac Cath and Mynx tsites 01:43 PM Education needs Procedure, Plan of Care, Diet, and Responsibilities of Patient in Care tsites 01:43 PM Learning barriers :None tsites 01:43 PM Education Methods Verbal tsites 01:43 PM Education evaluation Able to repeat information tsites 01:44 PM HR=73 bpm, HEEJ=063/76 mmhg, SpO2=94.0 %, Resp=27 B/min 01:45 PM Site status No bleeding/hematoma - Rt Groin as reported by Yovana Ram RT at 13:45 tsites 01:45 PM Opsite applied tsites 01:46 PM Delay to floor No tsites 01:46 PM Patient out of room: 13:46 tsites 01:47 PM no family at this time tsites 01:49 PM HR=71 bpm, LFDS=878/74 mmhg, SpO2=94 %, Resp=23 B/min 01:49 PM Report given to tameka DIALLO Pt taken to 3NE Room #26. 13:49 tsites 01:51 PM Lesion found in Proximal RCA. Pre Stenosis: 20 Pre ARIEL Flow: tsites 01:51 PM Lesion found in Proximal LAD. Pre Stenosis: 20 Pre ARIEL Flow: tsites 01:51 PM Lesion found in Mid Circumflex. Pre Stenosis: 15 Pre ARIEL Flow: tsites 01:52 PM Lesion found in Ramus. Pre Stenosis: 20 Pre ARIEL Flow: tsites 01:52 PM Proximal Left Anterior Descending Coronary Artery with 20% stenosis. If graft is supplying this territory, 0 % stenosis. tsites 01:52 PM Circumflex, Obtuse Marginal, Left Posterior Descending, and Left Posterolateral Coronary Arteries with 15 % stenosis. If graft is supplying this area, 0 % stenosis tsites 01:52 PM Right Coronary, Right Posterior Descending Arteries with Right Posterolateral and Acute Marginal branches with 20 % stenosis. If graft is supplying this area, 0 % stenosis tsites Complications Complication None Hemodynamics Pressures Site Systolic/A Wave Diastolic/V Wave Mean AO 120 83 100 AO 125 92 109 LV 113 22 23 LV 124 41 51 AO 123 87 105 Post Procedure Information Blood Pressure: 154/92 mmHg Rhythm: NSR Post procedural instructions were given Closure Device Time Device Success/Fail 10/15/2016 1:49:00 PM MynxGrip Successful Site Checks Time Location Status Staff Sheath In? Note 01:45 PM Rt Groin No bleeding/hematoma Yovana Ram Pulses Time Site Pre-Procedure Post-Procedure Note 10/15/2016 12:37:00 PM Bilateral DP \\T\\ PT 2+ 1:42:00 PM Bilateral DP \\T\\ PT 2+ Updated by Anita Zeng RT (R) on 10/15/2016 1:55:12 PM Anita Zeng RT electronically signed on 10/15/2016 1:55:55 PM with status of Final
--- NOTE | 2016-10-15 14:10 | Invasive Diagnostic Lab ---
Name: Manuel Burch Date of Study: 10/15/2016 Date: 1960 Ht: 154.9 cm /61.0 in Medical Record#: [id number] Age: 56 Wt: 98.2 kg / 216.49 lb Account/Order#: [id number] Gender: Female BSA: 1.95 Order #: [id number] Fluoro Dose: 259 mGy BMI: 40.93 Procedure Physician: Sole Suarez MD, [facility] Referring MD: Referring MD: Procedures Performed: LEFT HEART CATH Indications: Abnormal Test - Stress Impressions: Minimal nonobstructive coronary artery disease. The left ventricle is normal and has normal contractility EF 60% Recommendations: Optimal medical therapy of patient's disease. Aggressive risk factor modification. History/Risk Factors: asthma COPD renal dx GERD Diabetes Hypertension Dyslipidemia Procedure Access obtained in the right Femoral artery by percutaneous puncture Complications: None Contrast: Isovue 69ml Closure Device: MynxGrip Hemodynamics: Pressures Site Systolic/ A Wave Diastolic/ V Wave End Diastolic/ Mean HR AO 120 83 100 74 AO 125 92 109 77 LV 113 22 23 76 LV 124 41 51 74 AO 123 87 105 75 LV Ventriculography Ejection Method: LV Gram Ejection Fraction: 60% Wall Motion: WALTER Anterobasal Normal Anterolateral Normal Apical: Normal Inferoapical Normal Inferobasal Normal Coronary Dominance: right Lesion Findings/Interventions * Left Main Coronary Artery The LMCA is angiographically free of disease. * Left Anterior Descending There is a 20% stenosis in the Proximal LAD. * Circumflex There is a 15% stenosis in the Mid Circumflex. * Ramus There is a 20% stenosis in the Ramus. * Right Coronary Artery There is a 20% stenosis in the Proximal RCA. Updated by Anita Zeng RT (R) on 10/15/2016 1:55:33 PM Sole Suarez MD, FACC electronically signed on 10/15/2016 2:06:26 PM with status of Final
[2016-10-15] MEDS: 0.9 % Sodium Chloride 1,000 ML IVC SCH (19:58)
[2016-10-15] MEDS: *HR* Morphine 2 MG/ML SYRINGE IVP PRN (19:58)
[2016-10-16] MEDS: *HR* Morphine 2 MG/ML SYRINGE IVP PRN ×2 (02:28→09:31)
[2016-10-16] MEDS: Ipratropium/Albuterol Neb 3 ML IH SCH ×3 (04:56→15:15)
[2016-10-16] MEDS: *HR* OxyCODONE Immed Rel 5 MG TABLET PO PRN ×2 (06:10→12:40)
[2016-10-16] MEDS ORDERED: *HR* Enoxaparin 40 MG/0.4 ML SYRINGE SQ SCH (07:00)
[2016-10-16] MEDS: Metoprolol XL (24 HR) Succ 25 MG TAB.ER.24H PO SCH (09:04)
[2016-10-16] MEDS: predniSONE 20 MG TABLET PO SCH (09:04)
[2016-10-16] MEDS: Aspirin 81 MG TAB.CHEW PO SCH (09:05)
[2016-10-16] MEDS: Pregabalin 75 MG CAPSULE PO SCH (09:07)
[2016-10-16] MEDS: Isosorbide MONOnitrate (24 HR) 30 MG TAB.ER.24H PO SCH (09:07)
[2016-10-16] MEDS: Cholestyramine 4 GM POWD.PACK PO SCH (09:07)
--- NOTE | 2016-10-16 09:58 | Discharge Summary ---
Date of Encounter: 10/16/16 Time of Encounter: 09:53 - Discharge Diagnosis (1) Chest pain with moderate risk of acute coronary syndrome Priority: Primary Status: Acute (2) Morbid obesity with BMI of 40.0-44.9, adult Priority: Secondary Status: Chronic (3) Sarcoidosis of lung Priority: Secondary Status: Chronic - Discharge Medications Prescriptions: Aspirin 81 mg PO DAILY #30 tab.chew HYDROcodone/Acet 5/325 mg [[place] 5-325 mg] 1 tab PO Q6H PRN #30 tab PRN Reason: Moderate Pain Home Medications: Aspirin 325 mg PO DAILY 05/24/15 [History] Buspirone [Buspar] 5 mg PO TID 05/24/15 [History] Dicyclomine [Bentyl] 10 mg PO QID 05/24/15 [History] Cholestyramine/Aspartame [Cholestyramine Light Packet] 4 gm PO DAILY 12/26/15 [ History] Acetaminophen [8 Hour] 650 mg PO Q6HR PRN 07/07/16 [History] Esomeprazole Magnesium [Nexium] 40 mg PO DAILY 07/07/16 [History] Metoprolol XL (24 HR) Succ [Toprol Xl] 25 mg PO DAILY 07/07/16 [History] Potassium Chloride [Klor-Con 10] 10 meq PO DAILY 09/09/16 [History] Albuterol Neb [Proventil Neb] 2.5 mg IH Q2H PRN #0 inhsol 09/14/16 [Rx] Docusate [Colace] 100 mg PO BID PRN 09/14/16 [History] Furosemide [Lasix] 80 mg PO DAILY tablet 09/14/16 [Rx] Ipratropium/Albuterol Neb [Duoneb] 3 ml IH Q6HR PRN 09/14/16 [History] Lidocaine Patch [Lidoderm 5% patch] 1 each TP DAILY adh..patch 09/14/16 [Rx] Ondansetron ODT [Zofran ODT] 4 mg SL Q4HR PRN #0 tab.rapdis 09/14/16 [Rx] Pregabalin [Lyrica] 150 mg PO BID capsule 09/14/16 [Rx] Isosorbide MONOnitrate (24 HR) [Imdur] 30 mg PO DAILY 10/14/16 [History] Losartan Potassium [Cozaar] 50 mg PO DAILY 10/14/16 [History] Sertraline [Zoloft] 200 mg PO DAILY 10/14/16 [History] Simvastatin [Zocor] 10 mg PO HS 10/14/16 [History] Tizanidine HCl 4 mg PO TID PRN 10/14/16 [History] Aspirin 81 mg PO DAILY #30 tab.chew 10/16/16 [Rx] HYDROcodone/Acet 5/325 mg [[place] 5-325 mg] 1 tab PO Q6H PRN #30 tab 10/16/16 [Rx ] Allergies/Adverse Reactions: Allergies Iodinated Contrast Media - Oral and [Iodinated Contrast Media - IV Dye] Allergy (Verified 09/09/16 07:27) Hives Sulfa (Sulfonamide Antibiotics) Allergy (Verified 09/09/16 07:27) Hives tetanus and diphtheria toxoids [Tetanus&Diphtheria Toxoid] Allergy (Verified 07:27) Hives Procedures/tests Complete & Pending: Procedures Performed prior 72 hours Category Date Time Status CL Cardiac Catheterization [CL] Routine Airline Counter Agent 10/15/16 10:22 Completed ECG 12 lead ECG [ECG] Routine Y 10/14/16 20:50 Ordered ECG 12 lead ECG [ECG] Routine Y 10/15/16 07:00 Completed EV echocardiogram Routine Y 10/15/16 20:50 Completed Date of admission: 10/14/16 19:58 Primary care physician: Neo Chang CNP Consults: 10/14/16 20:50 Consult to Nurse Navigator [CONS] Routine Comment: Consult to Nurse Navigator [CONS] Routine Comment: 10/15/16 08:00 Consult to Cardiology [CONS] Routine Comment: Consulting Provider: Cardiology Michell Reason for Consult: Acute chest pain r/o ACS/UA. Multiple cardiovascular risk factors/comorbidities. Please evaluate and advise. Time Notified: 21:01 Call Completed: No Discharging clinician: Jack Melvin Anticipated date of discharge: 10/16/16 - Patient Status Disposition: Home, Self-Care Condition: Fair Functional capacity at discharge: independent ambulation Overall status at discharge: patient is back to baseline - Discharge Instructions Follow Up With: Jelly Bowling CNP [Advanced Practice Nurse] - 11/12/16 11:00 am Jennifer Magallon MD [Partnered Physician] - 12/10/16 9:35 am Neo Chang CNP [Primary Care Provider] - 10/21/16 1:00 pm Manuel Ta MD [Partnered Physician] - 11/27/16 10:00 am Shayna Boyer DO [Partnered Physician] - 10/17/16 10:50 am (Following appt: @ 3:30pm in [place]) - Diet and Activity Activity: resume usual activities as tolerated Diet: advance to your usual diet Interval History: Ms. Burch is a 56 year old female with PMH of DM, HTN, HLD, COPD on home O2, sarcoidosis, recent mildly abnormal stress test that presented to ED with chief complaint of chest pain. She states it has been ongoing, worse with exertion, relieved with rest and nitro, but that in recent days it has been constant. It is left sided with radiation down her left arm associated with dyspnea. She reports her O2 sats dropped to 80s at home yesterday. She also reports a recent GI virus with nausea, vomiting and diarrhea, but no episodes since yesterday. Troponins have been negative x 3. CXR negative. No acute EKG changes. Stress test 08/2016 showed a small size, mild intensity, reversible perfusion defect in apical anterior wall consistent with mild ischemia. She was seen by Dr. Boyer 09/19/16 at which time meds were optimized. Pt reports there has been no improvement in symptoms. she was admitted for further evaluation.cardio was consulted and she underwent LHC,Risk factors include DM, HTN, HLD. LHC shows minimal CAD. No intervention. the chest is possible musculoskeletal, no other cause identified at this time. seh is being dc in stable codition. Hospital course: Ms. Burch is a 56 year old female Time spent discussing smoking cessation with patient: more than 10 minutes - Time Spent with Patient Total time spent providing and/or coordinating discharge services: Greater than 30 minutes - Constitutional Vitals: Temp Pulse Resp BP Pulse Ox 98.7 F 68 16 126/71 95 10/16/16 06:43 10/16/16 06:43 10/16/16 06:43 10/16/16 08:17 10/16/16 06:43 General appearance: Present: cooperative, A&O X 3, morbidly obese, no acute distress, answers questions appropriately Exam: HEENT: Atraumatic, Normocephaly, Mucus Membranes Moist Neck: No JVD, Normal carotid pulses Cardiac: Reg Rate and Rhythm, Normal S1 and S2, No Murmur Lungs: Other (mild expiratory wheezes) Neuro: Alert and responsive, No focal deficits noted Abdomen: Soft, Non-Tender Skin: Other (redness on right hand palm) Musculoskeletal: No Chest Wall Tenderness Extremities: No Clubbing, No Cyanosis, No Edema, Normal Pulses - VTE Documentation of Mechanical Device: Venous foot pump, device
[2016-10-16] MEDS ORDERED: *HR* HYDROcodone/Acet 5/325 mg TABLET PO ONE (14:16)
[2016-10-16 14:55] VITALS: BP 129/67
--- NOTE | 2016-10-16 16:01 | Physician Discharge Referral ---
Home Health/Hosp Referral Info Transfer to: Home Health Attending Provider: marie lee - Diagnosis (1) Chest pain with moderate risk of acute coronary syndrome Status: Acute (2) Morbid obesity with BMI of 40.0-44.9, adult Status: Chronic (3) Sarcoidosis of lung Status: Chronic - Respiratory Orders Smoking Cessation: Smoking cessation has been advised. For more information, call the [place] Tobacco Quit Line at 4-931-MKDR-NOW. - Diet/Nutrition Diet/Nutrition Orders: Regular - Activity Activity Orders: Up ad kenneth - Services Needed Following services are medically necessary services: Nursing, Home Health Aide, Physical Therapy, Occupational Therapy - Transfer Medications Prescriptions: Aspirin 81 mg PO DAILY #30 tab.chew HYDROcodone/Acet 5/325 mg [[place] 5-325 mg] 1 tab PO Q6H PRN #30 tab PRN Reason: Moderate Pain Home Medications: Aspirin 325 mg PO DAILY 05/24/15 [History] Buspirone [Buspar] 5 mg PO TID 05/24/15 [History] Dicyclomine [Bentyl] 10 mg PO QID 05/24/15 [History] Cholestyramine/Aspartame [Cholestyramine Light Packet] 4 gm PO DAILY 12/26/15 [ History] Acetaminophen [8 Hour] 650 mg PO Q6HR PRN 07/07/16 [History] Esomeprazole Magnesium [Nexium] 40 mg PO DAILY 07/07/16 [History] Metoprolol XL (24 HR) Succ [Toprol Xl] 25 mg PO DAILY 07/07/16 [History] Potassium Chloride [Klor-Con 10] 10 meq PO DAILY 09/09/16 [History] Albuterol Neb [Proventil Neb] 2.5 mg IH Q2H PRN #0 inhsol 09/14/16 [Rx] Docusate [Colace] 100 mg PO BID PRN 09/14/16 [History] Furosemide [Lasix] 80 mg PO DAILY tablet 09/14/16 [Rx] Ipratropium/Albuterol Neb [Duoneb] 3 ml IH Q6HR PRN 09/14/16 [History] Lidocaine Patch [Lidoderm 5% patch] 1 each TP DAILY adh..patch 09/14/16 [Rx] Ondansetron ODT [Zofran ODT] 4 mg SL Q4HR PRN #0 tab.rapdis 09/14/16 [Rx] Pregabalin [Lyrica] 150 mg PO BID capsule 09/14/16 [Rx] Isosorbide MONOnitrate (24 HR) [Imdur] 30 mg PO DAILY 10/14/16 [History] Losartan Potassium [Cozaar] 50 mg PO DAILY 10/14/16 [History] Sertraline [Zoloft] 200 mg PO DAILY 10/14/16 [History] Simvastatin [Zocor] 10 mg PO HS 10/14/16 [History] Tizanidine HCl 4 mg PO TID PRN 10/14/16 [History] Aspirin 81 mg PO DAILY #30 tab.chew 10/16/16 [Rx] HYDROcodone/Acet 5/325 mg [[place] 5-325 mg] 1 tab PO Q6H PRN #30 tab 10/16/16 [Rx ] Allergies/Adverse Reactions: Allergies Iodinated Contrast Media - Oral and [Iodinated Contrast Media - IV Dye] Allergy (Verified 09/09/16 07:27) Hives Sulfa (Sulfonamide Antibiotics) Allergy (Verified 09/09/16 07:27) Hives tetanus and diphtheria toxoids [Tetanus&Diphtheria Toxoid] Allergy (Verified 07:27) Hives Certification: Further, I certify that my clinical findings support that this patient is homebound (i.e. absences from home require considerable and taxing effort and are for medical reasons or moravian services or infrequently or short duration when for other reasons) because: Homebound Reason: Patient requires assistance of a person or device to safely leave home Attestation: My signature below is to certify that this patient is under my care and that I, or nurse practitioner, or a physician's senior executive assistant working with me, has a face-to -face encounter with this patient.
--- NOTE | 2016-10-17 16:21 | Electrocardiograph Report ---
[place] [id number] Test Date: 2016-10-16 Pat Name: Manuel Burch Department: 114 Room: [facility] Gender: F Director Social Service: : 1960 Requested By: Jack Melvin Order Number: [id number] Reading MD: Sole Suarez Measurements Intervals [place] Rate: 73 P: 53 HI: 167 QRS: 22 QRSD: 96 T: 47 QT: 360 QTc: 386 Interpretive Statements SINUS RHYTHM Electronically Signed On 10-17-2016 16:20:08 EST by Sole Suarez
== END 2016-10-16 16:21 | disposition home health service (06) ==
LOC: 3NENU
PROVIDERS: ADMIT Internal Medicine; ATTEND Internal Medicine Endocrinology, Diabetes & Metabolism

== ENCOUNTER 2016-12-22 16:56 | Observation (INO) ==
[2016-12-22] MEDS ORDERED: *HR* Promethazine 25 MG/ML VIAL IVP PRN (20:05)
[2016-12-22] MEDS ORDERED: Naloxone 0.4 MG/ML INJ IVP PRN (20:05)
[2016-12-22] MEDS ORDERED: Albuterol 2.5 MG/3 ML NEBULIZER IH PRN (20:30)
--- NOTE | 2016-12-22 20:36 | Internal Med History&Physical ---
<Ravi Rizzo - Last Filed: 12/22/16 20:32> Date of Encounter: 12/22/16 Time of Encounter: 20:32 Assessment and Plan (1) Upper gastrointestinal hemorrhage Current visit: No Status: Acute History of superficial gastric ulcer. Patient recently completed a 5 day course of steroids which could be contributing, as well as long-term SSRI and aspirin use. Patient denies NSAID use. Patient is stable at this time. She is not tachycardic, orthostatic vital signs performed in the emergency department were negative for orthostasis. Hemoglobin was 12.4 in the emergency department which is stable for her. Patient's last episode of hematemesis was this morning. We will monitor the patient overnight, keep her nothing by mouth. If the patient remains stable and does not have any more bleeding the patient may be discharged to home with close outpatient follow-up. We have initiated twice a day PPI. Will recheck labs in the morning. (2) GERD (gastroesophageal reflux disease) Current visit: No Status: Chronic Patient has a history of GERD with a history of superficial ulcer on EGD in December 2015. Patient was on Nexium [address] will place on Protonix IV twice a day. Qualifiers: Esophagitis presence: esophagitis presence not specified Qualified Code(s) : K21.9 - Gastro-esophageal reflux disease without esophagitis (3) Hypertension Current visit: No Status: Chronic We will hold hypertensives at this time as the patient's blood pressure is normal and his concern for active bleeding. Qualifiers: Hypertension type: essential hypertension Qualified Code(s): I10 - Essential (primary) hypertension (4) Sarcoidosis of lung Current visit: No Status: Chronic Patient reports a history of sarcoid that she is not undergoing any treatment at this time and denies long-term steroid use. She did recently have a five- day course of steroids for a bug bite but she denies long-term steroid use for her sarcoidosis. (5) Chronic back pain greater than 3 months duration Current visit: No Status: Chronic Patient has long-term chronic back pain for which she uses [place] [address] Will place on 2 mg of morphine every 4 when necessary also patient is nothing by mouth. (6) DVT prophylaxis Current visit: No Status: Acute Given concern for active GI bleed pharmacologic prophylaxis is not indicated at this time. We will order EPCDs. Internal Medicine - H&P: HPI Chief complaint: Vomiting blood Admitted From: Emergency Dept Plans for Post Hospital Care: Home History of present illness: Ms. Burch is a 56 year old female with history of superficial gastric ulcer presents with a three-day history of vomiting up blood. Patient states that 3 days ago she had sudden onset hematemesis. She states that she is vomited blood for 5 times a day over the last 3 days. Last time she vomited blood was this morning. Patient states that the amount of blood fills the toilet bowl each time. Patient states that she had similar symptoms a year ago and was found to have a ulcer at that time. Patient states that today she started to feel fatigued, and dizzy. She denies any syncope or near-syncope. She denies any chest pain, shortness of breath. She reports that she has had loose stools with possible "pus" in the stool. Patient states this is chronic for her. She denies any acute change in her bowel habits or stool character. Patient has been able to take in liquids but has not taken in any solid food in the last 3 days. At this time she is starting to feel hungry. Patient was recently treated for a bug bite with 5 days of oral steroids. Past Med Surg Social Fam HX - Past Medical History Medical history: arthritis, asthma, COPD, diabetes, fibromyalgia, GERD, glaucoma , hyperlipidemia, hypertension, renal disease, thyroid disease, other Psychiatric history: anxiety, depression, other - Past Surgical History Surgical History: cholecystectomy, hysterectomy, knee replacement, orthopedic, other, other - Social History Smoking Status: Never smoker Smokeless Tobacco Status: No Alcohol use: none Drug use: none - Family History Brother Adopted: No Family Member Ethnicity: Non- Living Status: Still Living Hx Family Cardiac Disorders: Yes Hx Family Respiratory Disorders: Yes Hx Family Cancer: No Hx Family GI Disorders: No Hx Family Endocrine Disorder: Yes (dm2) Hx Family Neuromuscular Disorders: Yes (cva) Paternal Grandmother Living Status: Hx Family Cancer: Yes (eye) Maternal Grandfather Living Status: Hx Family Neuromuscular Disorders: Yes (cva) Mother Living Status: Still Living Hx Family Cardiac Disorders: Yes ("Heart problems", carotid artery disease) Hx Family Respiratory Disorders: Yes Hx Family GI Disorders: Yes (GERD) Father Adopted: No Living Status: Hx Family Cardiac Disorders: Yes (Some type of heart condition or CAD, CVA) Internal Medicine - H&P: Meds Buspirone [Buspar] 5 mg PO TID 05/24/15 [History] Dicyclomine [Bentyl] 10 mg PO QID 05/24/15 [History] Cholestyramine/Aspartame [Cholestyramine Light Packet] 4 gm PO DAILY 12/26/15 [ History] Acetaminophen [8 Hour] 650 mg PO Q6HR PRN 07/07/16 [History] Esomeprazole Magnesium [Nexium] 40 mg PO DAILY 07/07/16 [History] Metoprolol XL (24 HR) Succ [Toprol Xl] 25 mg PO DAILY 07/07/16 [History] Potassium Chloride [Klor-Con 10] 10 meq PO BID 09/09/16 [History] Docusate [Colace] 100 mg PO BID PRN 09/14/16 [History] Furosemide [Lasix] 80 mg PO DAILY tablet 09/14/16 [Rx] Lidocaine Patch [Lidoderm 5% patch] 1 each TP DAILY adh..patch 09/14/16 [Rx] Pregabalin [Lyrica] 150 mg PO BID capsule 09/14/16 [Rx] Isosorbide MONOnitrate (24 HR) [Imdur] 15 mg PO DAILY 10/14/16 [History] Losartan Potassium [Cozaar] 50 mg PO DAILY 10/14/16 [History] Sertraline [Zoloft] 200 mg PO DAILY 10/14/16 [History] Simvastatin [Zocor] 10 mg PO HS 10/14/16 [History] Tizanidine HCl 4 mg PO TID PRN 10/14/16 [History] Aspirin 81 mg PO DAILY #30 tab.chew 10/16/16 [Rx] Albuterol Neb [Proventil Neb] 2.5 mg IH Q4H PRN 12/22/16 [History] Albuterol Sulfate [Albuterol Inhaler] 2 puff IH Q4H PRN 12/22/16 [History] Budesonide/Formoterol 160/4.5 [Symbicort 160/4.5] 2 puff IH BIDR 12/22/16 [ History] HYDROcodone/Acet 5/325 mg [[place] 5-325 mg] 1 tab PO BID PRN 12/22/16 [History] Nitroglycerin [Nitrostat] 0.4 mg SL Q5M PRN 12/22/16 [History] Oxygen 2 l NS AD 12/22/16 [History] Allergies Iodinated Contrast Media - Oral and [Iodinated Contrast Media - IV Dye] Allergy (Verified 11/11/16 17:33) Hives Sulfa (Sulfonamide Antibiotics) Allergy (Verified 11/11/16 17:33) Hives tetanus and diphtheria toxoids [Tetanus&Diphtheria Toxoid] Allergy (Verified 17:33) Hives All Systems PM: A 10-system review of systems was performed and is negative for pertinent findings except as documented above in the HPI. - Constitutional Constitutional: fatigue, no fever(s), no falls, no weakness - EENT Eyes: no change in vision Nose, mouth and throat: no epistaxis - Cardiovascular Cardiovascular ROS IM: lightheadedness, no chest pain, no dyspnea, no syncope - Respiratory Respiratory: no cough, no hemoptysis, no excessive phlegm production, no change in phlegm color - Gastrointestinal Gastrointestinal: abdominal pain, hematemesis, nausea, vomiting, no change in bowel habits, no change in stool character, no hematochezia, no melena - Genitourinary Genitourinary: no dysuria, no hematuria - Musculoskeletal Musculoskeletal ROS IM: back pain (chronic) - Neurological Neurological ROS: dizziness, no confusion, no focal weakness, no frequent falls , no headache(s), no numbness - Psychiatric Psychiatric: depression (chronic) - Hematologic/Lymphatic Hematologic/Lymphatic: no easy bleeding, no easy bruising - Allergic/Immunologic Allergic/Immunologic: no tongue swelling, no throat swelling, no GI upset with certain foods - Constitutional Vitals: Temp Pulse Resp BP Pulse Ox 97.8 F 55 15 95/49 95 12/22/16 19:37 12/22/16 19:37 12/22/16 19:37 12/22/16 19:37 12/22/16 19:37 General appearance: Present: A&O X 3, pleasant, no acute distress - Head Head exam: Present: atraumatic, normal inspection, normocephalic - Eye Eye exam: Present: EOMI, PERRL. Absent: scleral icterus - ENT ENT exam: Present: mucous membranes moist, normal oropharynx - Neck Neck exam general surgery: Present: full ROM - Respiratory Respiratory exam: Present: CTAB. Absent: rales, respiratory distress, rhonchi, wheezes, tachypnea - Cardiovascular Cardiovascular exam: Present: RRR. Absent: gallop, irregular rhythm, rubs, systolic murmur, tachycardia - GI/Abdominal GI/Abdominal exam: Present: normal bowel sounds, soft, tenderness (Epigastric), no peritoneal signs. Absent: distended, firm, guarding, rebound, rigid - Extremities Exam Extremities exam: Present: pedal edema (trace), warm. Absent: tenderness - Neurological Exam Neurological exam: Present: alert, CN II-XII intact, oriented X3, no focal deficits - Psychiatric Psychiatric exam: Present: normal affect, normal mood <Ascencion Desir - Last Filed: 12/23/16 00:08> Date of Encounter: 12/22/16 Internal Medicine - H&P: HPI History of present illness: Ms. Burch is a 56 year old female All Systems PM: A 10-system review of systems was performed and is negative for pertinent findings except as documented above in the HPI. - Constitutional Vitals: Temp Pulse Resp BP Pulse Ox 97.6 F 56 16 110/72 95 12/22/16 23:05 12/22/16 23:05 12/22/16 23:05 12/22/16 23:05 12/22/16 23:05 - Attending Attestation I personally interviewed and examined this patient and my medical decision- making was reviewed with the Resident Physician. I agree with the documented findings, disposition and treatment plan as described. If patient has another episode of hematemsis or a significant drop in her Hb, we will get inpatient GI consult, if however she has no such episode and her Hb is stable she will benefit from outpatient GI followup and can be discharged home in AM.
[2016-12-22] MEDS: *HR* Morphine 2 MG/ML SYRINGE IVP PRN (20:51)
[2016-12-22] MEDS: Budesonide/Formoterol 160/4.5 MDI IH SCH (21:01)
[2016-12-23] MEDS ORDERED: Simethicone 80 MG TAB.CHEW PO PRN (00:05)
[2016-12-23] MEDS: *HR* Morphine 2 MG/ML SYRINGE IVP PRN ×2 (04:10→08:38)
[2016-12-23 05:18] LABS: Hematocrit 38.4 % (35.3-44.9); Hemoglobin 12.1 g/dL (11.5-15.4); Mean Corpuscular HGB Conc 31.5 g/dL (31.6-35.5); Mean Corpuscular Hemoglobin 26.3 pg (28.0-33.3); Mean Corpuscular Volume 83.5 fL (83.0-100.0); Platelet Count 131 K/mcL (140-400); Red Cell Distribution Width 16.1 % (11.5-14.5)
[2016-12-23 05:21] LABS: INR 1.1; Prothrombin Time 11.6 Seconds (9.4-12.1)
[2016-12-23 05:30] LABS: BUN/Creatinine Ratio 13 (6-26); Blood Urea Nitrogen 10 mg/dL (7-20); Calcium 8.5 mg/dL (8.6-10.8); Carbon Dioxide 32 mEq/L (19-29); Chloride 104 mEq/L (98-109); Glucose 95 mg/dL (70-99); Magnesium 1.9 mg/dL (1.6-2.6); Osmolality,Calculated 295 (280-300); Potassium 3.5 mEq/L (3.5-4.5); Sodium 143 mEq/L (136-145); eGFR For African Americans > 60 (> 60); eGFR For Non-African Americans > 60 (> 60)
[2016-12-23] MEDS: Pantoprazole 40 MG VIAL IVP SCH ×2 (06:23→06:28)
[2016-12-23] MEDS: Budesonide/Formoterol 160/4.5 MDI IH SCH (07:30)
[2016-12-23] MEDS ORDERED: Isosorbide MONOnitrate (24 HR) 30 MG TAB.ER.24H PO SCH (09:00)
[2016-12-23] MEDS ORDERED: Metoprolol XL (24 HR) Succ 25 MG TAB.ER.24H PO SCH (09:00)
[2016-12-23] MEDS ORDERED: *HR* HYDROcodone/Acet 10/325 mg TABLET PO PRN (14:05)
[2016-12-23 14:55] LABS: Bilirubin,Urine Negative (Negative); Blood,Urine Negative (Negative); Clarity,Urine Clear (Clear); Color,Urine Yellow (Yellow); Glucose,Urine (UA) Normal (Normal); Ketones,Urine Negative (Negative); Leukocyte Esterase,Urine Small (Negative); Nitrite,Urine Negative (Negative); Protein,Urine Negative (Neg-Trace); Specific Gravity,Urine 1.011 (1.010-1.025); Urobilinogen,Urine Normal (Normal)
[2016-12-23 15:00] LABS: Bacteria,Urine None Seen per hpf (None-Few); Hyaline Casts,Urine None Seen per lpf (None-Few); RBC,Urine 0-3 per hpf (0-3); Squamous Epithelial Cell,Urine Many per lpf (None-Few)
--- NOTE | 2016-12-23 15:14 | Discharge Summary ---
Date of Encounter: 12/23/16 Time of Encounter: 09:10 - Discharge Diagnosis (1) Upper gastrointestinal hemorrhage Priority: Primary Status: Acute Comments: Patient has recent history of superficial gastric ulcer. She uses aspirin and SSRIs long-term, she also completed a five-day course of steroids, all of which could be contributing to gastric hemorrhage. Hemoglobin was 12.4 in the emergency department. 12.1 today. She denies any kind of nausea, vomiting, hemoptysis, hematemesis, or hematochezia. We will continue twice a day PPI and have GI follow-up. I could not locate any notes from any GI procedures or office visits in our system. We will follow up outpatient. (2) Sarcoidosis of lung Priority: Secondary Status: Chronic Comments: Chronic. She is not receiving treatment at this time. No long-term steroid use. (3) Chronic back pain greater than 3 months duration Priority: Secondary Status: Chronic Comments: Patient reports chronic low back pain. She has home health at home. She lives at home with her . She does emulate with a cane. We will continue normal home medications on discharge. (4) Diabetes mellitus type 2, diet-controlled Priority: Secondary Status: Chronic Comments: Chronic. Continue home treatment. A1c 6% in October,. (5) Hypertension Priority: Secondary Status: Chronic Comments: Chronic. Continue medications. Qualifiers: Hypertension type: essential hypertension Qualified Code(s): I10 - Essential (primary) hypertension (6) GERD (gastroesophageal reflux disease) Priority: Secondary Status: Chronic Comments: Chronic. Continue home medications. PPI added twice daily. Qualifiers: Esophagitis presence: esophagitis presence not specified Qualified Code(s) : K21.9 - Gastro-esophageal reflux disease without esophagitis (7) Hyperlipidemia Priority: Secondary Status: Chronic Comments: Chronic. Continue home medication. Qualifiers: Hyperlipidemia type: mixed hyperlipidemia Qualified Code(s): E78.2 - Mixed hyperlipidemia (8) DVT prophylaxis Priority: Secondary Status: Acute Comments: Due to potential GI bleed, patient was not anticoagulated pharmacologically. Patient up ad kenneth. - Discharge Medications Prescriptions: Sucralfate [Carafate] 1 gm PO 4688,1637 #60 tablet Home Medications: Buspirone [Buspar] 5 mg PO TID 05/24/15 [History] Dicyclomine [Bentyl] 10 mg PO QID 05/24/15 [History] Cholestyramine/Aspartame [Cholestyramine Light Packet] 4 gm PO DAILY 12/26/15 [ History] Acetaminophen [8 Hour] 650 mg PO Q6HR PRN 07/07/16 [History] Esomeprazole Magnesium [Nexium] 40 mg PO DAILY 07/07/16 [History] Metoprolol XL (24 HR) Succ [Toprol Xl] 25 mg PO DAILY 07/07/16 [History] Potassium Chloride [Klor-Con 10] 10 meq PO BID 09/09/16 [History] Docusate [Colace] 100 mg PO BID PRN 09/14/16 [History] Furosemide [Lasix] 80 mg PO DAILY tablet 09/14/16 [Rx] Lidocaine Patch [Lidoderm 5% patch] 1 each TP DAILY adh..patch 09/14/16 [Rx] Pregabalin [Lyrica] 150 mg PO BID capsule 09/14/16 [Rx] Isosorbide MONOnitrate (24 HR) [Imdur] 15 mg PO DAILY 10/14/16 [History] Losartan Potassium [Cozaar] 50 mg PO DAILY 10/14/16 [History] Sertraline [Zoloft] 200 mg PO DAILY 10/14/16 [History] Simvastatin [Zocor] 10 mg PO HS 10/14/16 [History] Tizanidine HCl 4 mg PO TID PRN 10/14/16 [History] Aspirin 81 mg PO DAILY #30 tab.chew 10/16/16 [Rx] Albuterol Neb [Proventil Neb] 2.5 mg IH Q4H PRN 12/22/16 [History] Albuterol Sulfate [Albuterol Inhaler] 2 puff IH Q4H PRN 12/22/16 [History] Budesonide/Formoterol 160/4.5 [Symbicort 160/4.5] 2 puff IH BIDR 12/22/16 [ History] HYDROcodone/Acet 5/325 mg [[place] 5-325 mg] 2 tab PO BID PRN 12/22/16 [History] Nitroglycerin [Nitrostat] 0.4 mg SL Q5M PRN 12/22/16 [History] Oxygen 2 l NS AD 12/22/16 [History] Simethicone [Gas-X] 80 mg PO TID PRN #0 tab.chew 12/23/16 [Rx] Sucralfate [Carafate] 1 gm PO 0730,1630 #60 tablet 12/23/16 [Rx] Allergies/Adverse Reactions: Allergies Iodinated Contrast Media - Oral and [Iodinated Contrast Media - IV Dye] Allergy (Verified 11/11/16 17:33) Hives Sulfa (Sulfonamide Antibiotics) Allergy (Verified 11/11/16 17:33) Hives tetanus and diphtheria toxoids [Tetanus&Diphtheria Toxoid] Allergy (Verified 17:33) Hives Date of admission: 12/22/16 18:26 Primary care physician: Neo Chang CNP Consults: 12/23/16 09:29 Consult to Occupational Therapy [CONS] Routine Comment: Evaluate, develop and implement POC Reason for Consult: weakness Consult to Physical Therapy [CONS] Routine Comment: Evaluate, develop and implement POC Reason for Consult: weakness Consult to Shingle Inspector [CONS] Routine Reason for SW Consult: D/C planning Discharging clinician: Kenya Ahn Anticipated date of discharge: 12/23/16 - Patient Status Disposition: Home, Self-Care Condition: Good Functional capacity at discharge: uses cane/walker Overall status at discharge: patient is back to baseline - Discharge Instructions Follow Up With: Neo Chang CNP [Primary Care Provider] - 12/30/16 2:00 pm Additional Instructions: Follow up with GI physician as scheduled Return to the ER for any other problems or concerns or if your symptoms return or worsen Start your new medication tonight before you eat dinner. - Diet and Activity Activity: increase activity as tolerated Diet: advance to your usual diet Hospital course: Ms. Burch is a 56 year old female with history of chronic back pain, reflux, hypertension, sarcoidosis of lung. Patient reports 3 day history of vomiting bright red blood and filling the toilet several times a day. She has a history of superficial gastric ulcer recently. She also completed a five-day course of steroids and is a long-term SSRI and aspirin user. Her vitals were stable, she is not tachycardic, blood pressure is within normal limits. Hemoglobin has stayed steady around 12.1 today. She denies any black tarry stools or bright red rectal bleeding. She denies any nausea or vomiting and has not required any medication for either. She does have home health and will need to be recertified. She does have nursing needs due to decreased mobility from chronic back pain. She also uses additional oxygen and edema home health. Patient reports approximately 3 month history of mid abdominal pain. Abdomen is nontender to palpation, soft, bowel sounds present. She also reports weight "pus" in her diarrhea for several years. She will have a follow-up with GI outpatient. She will also start Carafate and continue her PPI. Patient is stable and appropriate for discharge. - Time Spent with Patient Total time spent providing and/or coordinating discharge services: Less than 30 minutes - Constitutional Vitals: Temp Pulse Resp BP Pulse Ox 97.8 F 59 13 94/67 97 12/23/16 11:46 12/23/16 11:46 12/23/16 11:46 12/23/16 11:46 12/23/16 11:46 General appearance: Present: A&O X 3, pleasant, no acute distress - Head Head exam: Present: normal inspection - Eye Eye exam: Present: normal appearance, conjuntiva pink - ENT ENT exam: Present: mucous membranes moist, normal exam - Neck Neck exam general surgery: Absent: lymphadenopathy, tenderness - Respiratory Respiratory exam: Present: CTAB. Absent: decreased breath sounds, rales, respiratory distress, wheezes - Cardiovascular Cardiovascular exam: Present: RRR, +S1, +S2. Absent: diastolic murmur, systolic murmur - GI/Abdominal GI/Abdominal exam: Present: normal bowel sounds, soft. Absent: hepatomegaly, splenomegaly, tenderness - Extremities Exam Extremities exam: Present: normal inspection, warm, radial pulses palpable and symetrical. Absent: pedal edema, tenderness - Neurological Exam Neurological exam: Present: alert, oriented X3, no focal deficits, strengths equal and symetr throughout. Absent: facial droop, speech deficit - Skin Skin exam: Present: dry, normal color, warm
[2016-12-23 15:57] VITALS: BP 95/59
--- NOTE | 2016-12-24 10:01 | Physician Discharge Referral ---
Home Health/Hosp Referral Info Transfer to: Home Health Provider in Charge Post Discharge: PCP - Diagnosis (1) Upper gastrointestinal hemorrhage Priority: Primary Status: Acute (2) Sarcoidosis of lung Priority: Secondary Status: Chronic (3) Chronic back pain greater than 3 months duration Priority: Secondary Status: Chronic (4) Diabetes mellitus type 2, diet-controlled Priority: Secondary Status: Chronic (5) Hypertension Priority: Secondary Status: Chronic (6) GERD (gastroesophageal reflux disease) Priority: Secondary Status: Chronic (7) Hyperlipidemia Priority: Secondary Status: Chronic (8) DVT prophylaxis Priority: Secondary Status: Acute - Respiratory Orders None Smoking Cessation: Smoking cessation has been advised. For more information, call the [place] Tobacco Quit Line at 4-684-XJVG-NOW. - Diet/Nutrition Diet/Nutrition Orders: No Added Salt (ALISHA), No Concentrated Sweets - Activity Activity Orders: Up ad kenneth, Walker - Services Needed Following services are medically necessary services: Nursing, Physical Therapy, Occupational Therapy - Transfer Medications Prescriptions: Sucralfate [Carafate] 1 gm PO 0730,1630 #60 tablet Home Medications: Buspirone [Buspar] 5 mg PO TID 05/24/15 [History] Dicyclomine [Bentyl] 10 mg PO QID 05/24/15 [History] Cholestyramine/Aspartame [Cholestyramine Light Packet] 4 gm PO DAILY 12/26/15 [ History] Acetaminophen [8 Hour] 650 mg PO Q6HR PRN 07/07/16 [History] Esomeprazole Magnesium [Nexium] 40 mg PO DAILY 07/07/16 [History] Metoprolol XL (24 HR) Succ [Toprol Xl] 25 mg PO DAILY 07/07/16 [History] Potassium Chloride [Klor-Con 10] 10 meq PO BID 09/09/16 [History] Docusate [Colace] 100 mg PO BID PRN 09/14/16 [History] Furosemide [Lasix] 80 mg PO DAILY tablet 09/14/16 [Rx] Lidocaine Patch [Lidoderm 5% patch] 1 each TP DAILY adh..patch 09/14/16 [Rx] Pregabalin [Lyrica] 150 mg PO BID capsule 09/14/16 [Rx] Isosorbide MONOnitrate (24 HR) [Imdur] 15 mg PO DAILY 10/14/16 [History] Losartan Potassium [Cozaar] 50 mg PO DAILY 10/14/16 [History] Sertraline [Zoloft] 200 mg PO DAILY 10/14/16 [History] Simvastatin [Zocor] 10 mg PO HS 10/14/16 [History] Tizanidine HCl 4 mg PO TID PRN 10/14/16 [History] Aspirin 81 mg PO DAILY #30 tab.chew 10/16/16 [Rx] Albuterol Neb [Proventil Neb] 2.5 mg IH Q4H PRN 12/22/16 [History] Albuterol Sulfate [Albuterol Inhaler] 2 puff IH Q4H PRN 12/22/16 [History] Budesonide/Formoterol 160/4.5 [Symbicort 160/4.5] 2 puff IH BIDR 12/22/16 [ History] HYDROcodone/Acet 5/325 mg [[place] 5-325 mg] 2 tab PO BID PRN 12/22/16 [History] Nitroglycerin [Nitrostat] 0.4 mg SL Q5M PRN 12/22/16 [History] Oxygen 2 l NS AD 12/22/16 [History] Simethicone [Gas-X] 80 mg PO TID PRN #0 tab.chew 12/23/16 [Rx] Sucralfate [Carafate] 1 gm PO 0730,1630 #60 tablet 12/23/16 [Rx] Allergies/Adverse Reactions: Allergies Iodinated Contrast Media - Oral and [Iodinated Contrast Media - IV Dye] Allergy (Verified 11/11/16 17:33) Hives Sulfa (Sulfonamide Antibiotics) Allergy (Verified 11/11/16 17:33) Hives tetanus and diphtheria toxoids [Tetanus&Diphtheria Toxoid] Allergy (Verified 17:33) Hives Certification: Further, I certify that my clinical findings support that this patient is homebound (i.e. absences from home require considerable and taxing effort and are for medical reasons or anabaptism services or infrequently or short duration when for other reasons) because: Homebound Reason: Leaving home requires considerable and taxing effort due to condition Attestation: My signature below is to certify that this patient is under my care and that I, or nurse practitioner, or a physician's bacteriology research assistant working with me, has a face-to -face encounter with this patient.
== END 2016-12-23 18:16 | disposition home or self-care (01) ==
LOC: 3BNU
PROVIDERS: ADMIT Internal Medicine; ATTEND Nurse Practitioner Family